=== PATIENT | male | born 1940 | race Caucasian/White ===

== ENCOUNTER 2019-09-05 18:58 | Inpatient (IN) | payer MEDICARE, OTHER ==
[2019-09-06 04:02] VITALS: BP 124/47
[2019-09-06] MEDS ORDERED: Magnesium Hydroxide (MOM) 30 mL UDC PO PRN (04:09)
[2019-09-06] MEDS ORDERED: Maalox 30 mL Cup PO PRN (04:09)
[2019-09-06] MEDS: Multivitamin Tab PO SCH (09:12)
[2019-09-06] MEDS ORDERED: Albuterol Nebulizer 2.5mg/3mL HHN PRN (13:18)
[2019-09-06] MEDS ORDERED: Fleet Enema 135 mL RC PRN (13:18)
[2019-09-06] MEDS ORDERED: Hydrocodone/APAP 5mg/325mg Tab PO PRN (13:18)
[2019-09-06] MEDS ORDERED: Polyvinyl Alcohol Ophth Soln 15 mL Bottle EACH EYE PRN (13:18)
[2019-09-06] MEDS ORDERED: Betamethasone/Clotrimazole Cream 15 gm Tube TP PRN (13:18)
[2019-09-06] MEDS ORDERED: POLYETHYLENE GLYCOL 3350 17 GM PACK PO PRN (13:18)
[2019-09-06] MEDS ORDERED: GLUCAGON HCl 1 MG KIT IM PRN (13:25)
[2019-09-06] MEDS ORDERED: ROTIGOTINE 8 MG TD SCH (13:30)
--- NOTE | 2019-09-06 14:41 | History & Physical ---
ADMIT DATE: 09/06/2019 REASON FOR CONSULTATION: Medical evaluation and clearance. HISTORY OF PRESENT ILLNESS: This is an 79-year-old male with history of hypertension, Parkinson's dementia, anemia, renal insufficiency, hypothyroidism, paroxysmal atrial fibrillation, BPH and severe debilitation, admitted from nursing facility ____ presented to ER. The patient ____, family member at bedside. PAST MEDICAL HISTORY: As mentioned in history of present illness. PAST SURGICAL HISTORY: Unable to obtain from the patient. ALLERGIES: Per chart, no known drug allergies. MEDICATIONS: The patient is on Tylenol, albuterol, Atrovent, [place], lidocaine, aspirin, Lotrisone, Sinemet, Aricept, Proscar, Fleet enema, Flonase, probiotic, lactulose, Megace, ____, Protonix, Nuplazid, MiraLax, artificial tears, and Azelex. FAMILY HISTORY: Noncontributory. SOCIAL HISTORY: The patient is a skilled nursing resident, patient requiring 24-hour total care. REVIEW OF SYSTEMS: This is limited secondary to pain, comatose. We will try to obtain more detailed review of system from family members, sister is Eloisa Byrd is at the bedside at [phone]. There is a brother, Jacinto Guerra, . We will also try to get information from nursing staff at ____ detention facility in [place]. PHYSICAL EXAMINATION: VITAL SIGNS: Blood pressure 124/47, respirations 20, pulse 67, temperature 98.0. GENERAL: He is an elderly male, contracted. HEENT: Bilateral temporal wasting. LUNGS: Equal breath sounds, few rhonchi. HEART: Regular rate and rhythm with systolic ejection murmur. ABDOMEN: Soft, globular. EXTREMITIES: Positive excoriation contracture. NEUROLOGIC: Limited. The patient is very specific. Gait not seen. Cranial nerve 1, disorder and confused. Cranial nerve 2, disorder and confused. Cranial nerve 3, disorder and confused. Cranial nerve 4, disorder and confused. Cranial nerve 5, disorder and confused. Cranial nerve 6, disorder and confused. Cranial nerve 7, disorder and confused. Cranial nerve 8, disorder and confused. Cranial nerve 9, disorder and confused. Cranial nerve 10, disorder and confused. Cranial nerve 11, disorder and confused. Cranial nerve 12, disorder and confused. Motor and sensory Limited. Gait not seen. LABORATORY DATA: Pertinent lab findings; sodium 143, potassium 3.2, BUN 22, creatinine 0.5, blood sugar 81, cholesterol is 116. Alcohol less than 3. WBC 8, hemoglobin 11 and platelets 230. ASSESSMENT AND PLAN: Diabetes, hypertension, hypokalemia, renal insufficiency, anemia, Parkinson's dementia, paroxysmal atrial fibrillation, benign prostatic hyperplasia, dermatitis, gait imbalance. Continue the patient on ADA diet and insulin sliding scale. We will review the patient's medication. Continue patient's antihypertensive medication. We will replace patient's potassium. We will continue to follow closely. JOB# [id number]
[2019-09-06] MEDS: Potassium Chloride 10 mEq ER Tab PO SCH (16:30)
[2019-09-06] MEDS ORDERED: INSULIN LISPRO SLIDING SCALE 100 UNITS/ML UNIT SUBQ SCH (16:30)
[2019-09-06] MEDS ORDERED: Non-Formulary Item 1 EA (Mirabegron [Myrbetriq] 25 MG) PO SCH (21:00)
[2019-09-06] MEDS ORDERED: Non-Formulary Item 1 EA (Pimavanserin Tartrate [Nuplazid] 34 MG) PO SCH (21:00)
[2019-09-06] MEDS: Lactulose 10 Gm/15 mL 30mL UDC PO SCH (21:10)
--- NOTE | 2019-09-07 01:02 | Psychiatric Evaluation ---
DATE OF SERVICE: 09/06/2019 IDENTIFYING DATA: The patient is an 79-year-old male, resident of a custodial facility. Information obtained by directly interviewing the patient as well as reviewing the admission papers and they are reliable. JUSTIFICATION OF HOSPITALIZATION: The patient is admitted for his acute agitation. CHIEF COMPLAINT: "I don't know." HISTORY OF PRESENT ILLNESS: This is the first psychiatric hospitalization to [facility] for this patient who is reported to have multiple medical problems such as hypertension, Parkinson's disease, dementia and renal insufficiency, hypothyroidism, paroxysmal atrial fibrillation and BPH and the patient is also noted to have acute torticollis. The patient has been admitted for acute agitation. Chart is reviewed. The patient is interviewed and the patient is not able to provide much of information. Sleep and appetite prior to the hospitalization are reported to be poor. PAST PSYCHIATRIC HISTORY: Details are not known, but the patient is being treated by Dr. Price on an outpatient basis. In view of his Parkinson's disease, the patient has been placed on Nuplazid. The patient is also on Aricept. MEDICAL HISTORY: Physical examination is requested to be done by Dr. Grande. SUBSTANCE ABUSE HISTORY: None. PHYSICAL OR SEXUAL ABUSE HISTORY: None. LEGAL PROBLEMS: None at this time. STRENGTH AND ASSETS: The patient is motivated. LIABILITIES: Poor coping skills. MENTAL STATUS EXAMINATION: The patient is an 79-year-old, looking his stated age, sitting down in the wheelchair with a neck bent to the left side. The patient is not able to provide much of information. Coping skills at this time are noted to be very much impaired. Insight and judgment are also noted to be very much impaired. The patient is reported to have been screaming and yelling prior to being hospitalized. The patient is reported to have been having acute psychosis. The patient is placed on Nuplazid. Since we do not have the Nuplazid ____ we are going to be using the patient's medication or starting the patient on Seroquel and then follow him up. DIAGNOSTIC IMPRESSION: AXIS I: 1. Psychotic disorder, not otherwise specified. 2. Dementia and behavioral change, secondary trait. AXIS II: None. AXIS III: Diabetes mellitus, hypertension, hypothyroidism, atrial fibrillation, benign prostate hypertrophy. AFTERCARE PLAN: The patient is going to be discharged to self once the patient is stabilized. ESTIMATED LENGTH OF STAY: 3-5 days. DISCHARGE CRITERIA: When he no longer a threat to self or others and be able to cope up with the stress. JOB# [id number]
[2019-09-07] MEDS: Pantoprazole 40 mg EC Tab PO SCH (06:40)
[2019-09-07] MEDS: INSULIN LISPRO SLIDING SCALE 100 UNITS/ML UNIT SUBQ SCH (06:52)
[2019-09-07] MEDS ORDERED: [UNRECOGNIZED DRUG - MIXTURE] PO SCH (09:00)
[2019-09-07] MEDS: Lactobacillus Rhamnosus GG 15 Billion CFU CAP.SPRINK PO SCH (09:15)
[2019-09-07] MEDS: Potassium Chloride 10 mEq ER Tab PO SCH ×2 (09:15→16:56)
[2019-09-07] MEDS: Multivitamin Tab PO SCH (09:15)
[2019-09-07] MEDS: Lactulose 10 Gm/15 mL 30mL UDC PO SCH (09:16)
[2019-09-07] MEDS: Fluticasone Propionate Nasal 1 SPR SPR NS SCH (09:17)
[2019-09-07] MEDS: Lidocaine 5% Patch TD SCH (09:17)
--- NOTE | 2019-09-07 09:54 | Consultation ---
DATE OF CONSULTATION: 09/07/2019 REFERRING PHYSICIAN: Geovany Price MD and Zach Menezes M.D. TYPE OF CONSULTATION: Psychology. HISTORY OF PRESENT ILLNESS: The patient is an 79-year-old male. The patient is being admitted due to acute agitation. The patient is a resident of a care home facility in [place]. The staff at the patient's facility report that the patient was having difficulty following through with his care plan and had multiple yelling and screaming episodes. Upon interview, the patient seems to be easily irritated and agitated and is not providing much information. The patient denied any suicidal ideation, plan or intention at the time of this clinical interview. PAST MEDICAL HISTORY: Please see history and physical by Dr. Grande. PAST PSYCHIATRIC HISTORY: The patient is under the care of Dr. Price at his placement. Details are unknown; however, record review indicates a history of dementia with behavioral disturbance. The patient has no other psychiatric hospitalizations according to the record. SUBSTANCE ABUSE HISTORY: The patient denies any history of alcohol, tobacco or illicit or recreational drug use/abuse. PSYCHOSOCIAL HISTORY: The patient lives at a care home facility. The patient stated that he is not and has no children. The patient states that he was raised Anglican. He stated that he is a high school graduate, but did not respond to the questions about previous occupation. The patient states that his brother, Jacinto and sister, Eloisa are involved in his care. The patient reports that he desires to return to his placement. The patient denied any physical or sexual abuse history or any current legal problems. MENTAL STATUS EXAMINATION: The patient appears to be his stated age. The patient's attitude is generally uncooperative. He presents as guarded and somewhat dismissive. The patient seems to be having a problem with his neck. He gave no other medical information at this time. Eye contact is poor. Speech is delayed and intermittently loud. Staff reports there has been some yelling episodes. Mood is irritable. Affect is constricted. Thought process shows to be confused and concrete. The patient did not answer questions about experiencing any auditory or visual hallucinations. The patient denied having suicidal thoughts. The patient's behavior has been difficult to deescalate. The staff reports some yelling episodes. Impulse control is inadequate. Concentration is poor. The patient was not able to perform the memory assessment. It appears that immediate, short term and long-term memory are impaired. Concentration is poor. The patient's sensorium is alert and oriented to self only. The patient did not participate in the interpretation of proverbs. Insight is poor. Judgment is poor. DIAGNOSTIC IMPRESSION AXIS I: 1. Psychotic disorder, not otherwise specified. 2. History of dementia with behavioral disturbance. AXIS II: Deferred. AXIS III: Please see H and P per Dr. Grande. PLAN: The patient has been seen by Dr. Menezes for psychiatric evaluation and for the management of the patient's psychotropic medications. The attending psychiatrist indicates the patient had been placed on Nuplazid, but that medication is not in the formulary. So the patient will be started on Seroquel. We will provide supportive psychotherapy to include de-escalation and motivational enhancement for the patient to become compliant and stay compliant with all aspects of his care and treatment. We will provide positive reinforcement for the patient to verbalize his concerns in an appropriate interaction with staff and to follow through with their direction. We will provide coping strategies for phase of life issues. We will provide reality orientation, differentiation and integration. We will encourage the patient to disclose any thoughts or feelings regarding self-harm. We will follow up in 2- 3 days to continue the present treatment. Thank you, Dr. Price and Dr. Menezes for this consult and the opportunity to participate with you in this patient's care. JOB# [id number] [place]
--- NOTE | 2019-09-07 10:01 | Internal Medicine Prog Note ---
Internal Medicine Subjective - Subjective Patient seen and examined:: with staff, chart reviewed Patient is:: awake, non-verbal, non-interactive, malachi chair Per staff patient has:: no adverse event, no episodes of fall, poor appetite, noncompliant Internal Medicine Objective - Physical Exam Vitals and I&O: Vital Signs Temp 97.3 F 09/07/19 06:41 Pulse 79 09/07/19 06:41 Resp 20 09/07/19 08:00 BP 138/80 09/07/19 06:41 Pulse Ox 99 09/07/19 06:41 Intake & Output 09/06/19 09/07/19 09/07/19 18:59 06:59 18:59 Intake Total 480 Output Total 252 Balance 228 Intake: Oral 480 Output: Urine 250 Urine/Stool Mix 2 Other: # Voids 1 Stool Characteristics Formed Formed Formed Active Medications: Current Medications Acetaminophen (Tylenol) 650 mg PO Q4H PRN PRN Reason: Pain (Mild 1-3) Stop: 11/05/19 04:08 Acetaminophen/Hydrocodone Bitart ([place] 5mg/325mg) 1 tab PO Q8H PRN PRN Reason: Pain (Severe 7-10) Stop: 11/05/19 13:29 Al Hydrox/Mg Hydrox/Simethicone (Maalox) 30 ml PO Q4HR PRN PRN Reason: GI DISTRESS Stop: 11/05/19 04:08 Albuterol Sulfate (Albuterol 2.5mg/3ml Neb Ud) 2.5 mg HHN Q4HR PRN PRN Reason: Shortness of Breath Stop: 11/05/19 15:59 Artificial Tears (Artificial Tears Ophth Soln) 1 drop EACH EYE TID PRN PRN Reason: dry eyes Stop: 11/05/19 13:17 Aspirin (Ecotrin) 81 mg PO DAILY MARIN Stop: 11/06/19 08:59 Last Admin: 09/07/19 09:15 Dose: 81 mg Betamethasone/Clotrimazole (Lotrisone Cream) 1 appl TP BID PRN PRN Reason: SEBORRHEIC DERMATITIS Stop: 11/05/19 13:17 Bisacodyl (Dulcolax 10 Mg Supp) 10 mg RC DAILY PRN PRN Reason: IF MIRALAX & MOM INEFFECTIVE Stop: 11/05/19 13:17 Carbidopa/Levodopa (Sinemet 25mg-100 Mg) 1 tab PO TID MARIN Stop: 11/05/19 13:59 Last Admin: 09/07/19 09:15 Dose: 1 tab Dextrose (Glutose 40%) 18.75 gm PO PRN PRN PRN Reason: BS Below 70 if tolerate po Stop: 11/05/19 13:24 Donepezil HCl (Aricept) 5 mg PO BID MARIN Stop: 11/05/19 16:59 Last Admin: 09/07/19 09:15 Dose: 5 mg Finasteride (Proscar) 5 mg PO DAILY MARIN; Protocol Stop: 11/06/19 08:59 Last Admin: 09/07/19 09:14 Dose: 5 mg Fluticasone Propionate (Flonase) 2 spr NS DAILY MARIN Stop: 11/06/19 08:59 Last Admin: 09/07/19 09:17 Dose: 2 spr Glucagon (Glucagen) 1 mg IM PRN PRN PRN Reason: BS Below 70 if not tolerate po Stop: 11/05/19 13:24 Insulin Human Lispro (Humalog Insulin Sliding Scale) 0 units SUBQ QDAC MARIN; Protocol Stop: 11/06/19 07:29 Last Admin: 09/07/19 06:52 Dose: Not Given Lactobacillus Rhamnosus (Culturelle 15b) 1 each PO DAILY MARIN Stop: 11/06/19 08:59 Last Admin: 09/07/19 09:15 Dose: 1 each Lactulose (Cephulac) 20 gm PO DAILY MARIN Stop: 11/07/19 08:59 Lidocaine (Lidoderm 5% Patch) 1 patch TD DAILY MARIN Stop: 11/06/19 08:59 Last Admin: 09/07/19 09:17 Dose: 1 patch Lorazepam (Ativan) 0.5 mg PO Q4HR PRN; Protocol PRN Reason: Anxiety Stop: 10/06/19 04:08 Last Admin: 09/07/19 06:00 Dose: 0.5 mg Magnesium Hydroxide (Milk Of Magnesia) 30 ml PO HS PRN PRN Reason: Constipation Megestrol Acetate (Megace) 400 mg PO QDAC MARIN; Protocol Stop: 11/06/19 07:29 Last Admin: 09/07/19 06:40 Dose: 400 mg Miscellaneous (Mirabegron [Myrbetriq]) 25 mg PO HS [facility] Stop: 11/05/19 20:59 Last Admin: 09/06/19 21:11 Dose: Not Given Miscellaneous (Pimavanserin Tartrate [Nuplazid]) 34 mg PO HS [facility] Stop: 11/05/19 20:59 Last Admin: 09/06/19 21:11 Dose: Not Given Miscellaneous (Rasagiline Mesylate [Azilect]) 1 mg PO DAILY [facility] Stop: 11/06/19 08:59 Miscellaneous (Rotigotine [Neupro]) 8 mg TD Q24H [facility] Stop: 11/05/19 13:29 Last Admin: 09/06/19 15:01 Dose: Not Given Multivitamins/Vitamin C (Theragran) 1 tab PO DAILY [facility] Stop: 11/05/19 08:59 Last Admin: 09/07/19 09:15 Dose: 1 tab Pantoprazole Sodium (Protonix) 40 mg PO QDAC [facility] Stop: 11/06/19 07:29 Last Admin: 09/07/19 06:40 Dose: 40 mg Polyethylene Glycol (Miralax) 17 gm PO QAM PRN PRN Reason: Constipation Stop: 11/05/19 13:17 Potassium Chloride (Klor-Con) 10 meq PO BID [facility] Stop: 09/08/19 16:59 Last Admin: 09/07/19 09:15 Dose: 10 meq Senna (Senna) 8.6 mg PO BID PRN PRN Reason: Constipation Stop: 11/05/19 16:59 Sodium Phosphate (Fleet Enema) 118 ml RC Q2D PRN PRN Reason: IF DULCOLAX INEFFECTIVE Stop: 11/05/19 13:17 Tamsulosin HCl (Flomax) 0.4 mg PO DAILY [facility] Stop: 11/06/19 08:59 Last Admin: 09/07/19 09:15 Dose: 0.4 mg Zolpidem Tartrate (Ambien) 5 mg PO HS PRN PRN Reason: Insomnia Stop: 11/05/19 04:08 General: lethargic, demented, thin, cachectic, other (contracted) HEENT: NC/AT, PERRLA Neck: Supple Lungs: CTAB Cardiovascular: RRR, Normal S1, Normal S2, with murmur Abdomen: soft, thin, positive bowel sound Extremities: excoriation, deformity, erythema Neurological: no change, spastic Internal Medicine Assmt/Plan - Assessment Assessment: ASSESSMENT AND PLAN: Diabetes, hypertension, hypokalemia, renal insufficiency, anemia, Parkinson's dementia, paroxysmal atrial fibrillation, benign prostatic hyperplasia, dermatitis, gait imbalance. - Plan Plan: PLAN: Continue the patient on ADA diet and insulin sliding scale. We will review the patient's medication. Continue patient's antihypertensive medication. We will replace patient's potassium. We will continue to follow closely. meds titrated Nutritional Asmnt/Malnutr-PDOC - Dietary Evaluation Malnutrition Findings (Please click <Entered> for more info): Nutritional Asmnt/Malnutrition Start: 09/06/19 14: 29 Text: Status: Complete Freq: Protocol: Document 09/06/19 14:29 UVALDO (Rec: 09/06/19 14:33 UVALDO [id number]) Nutritional Asmnt/Malnutrition Patient General Information Nutritional Screening High Risk Diagnosis Psychosis Pertinent Medical Hx/Surgical Hx No H& P available yet. Subjective Information Pt downgraded to moderate risk as he is eating and Ensure TID has been added to diet to increase nutritional intake to support skin integrity. Pt is a 79-year-old male admitted on 09/06 d/t psychosis. Visited pt at lunch time and spoke with family at side. Pt was eating lunch, was able to feed himself, pt seemed to need his food chopped as he was unable to use both hands at same time and is only able to use a spoon. Recorded pt food preferences and adding Ensure TID to increase kcal and pro intake as pt does loose food in his lap and enjoys the taste of the chocolate Ensure drinks. Pt stated its easy for him to drink with a straw than to eat everything. Pt was doing well eating though, will thicken hot cereals in the morning to help pt get the food to his mouth per request. Will monitor pt Zeyad Score and PO intake. Spoke with pt Nurse Tenisha pertaining to recommendation: Diet Rx Mechanical Soft, Chopped Anthropometrics HT: 56 WT: 126 LB (57.27 kg) BMI: 20.40 (Normal) GI/ Skin Integrity GI: WNL, Soft, Flat BM: 09/06 x1 I/O: 60/Not Noted Skin: WNL, Intact Zeyad: 12 Diet Order: Regular Estimated Energy Needs: ( Geriatric, CBW) 6698-9741 kcals (25-30 kcals/ kg) 60-70g Pro (1.0-1.2 g/kg) 6411-5446 ml (25-30 ml/kg) Pertinent Medications Maalox (PRN), Albuterol (PRN), Dulcolax, Glutose 40% (PRN), Flonase, Glucagen (PRN), INS- SS, Cephulac, MOM (PRN), Megace, Theragran, Protonix, Miralax (PRN), Klor-Con, Senna , Flomax Pertinent Labs Pertinent Labs No nutrition diagnosis at this time. Glucose WNL. Nutritional Hx/Data Height 1.68 m Height (Calculated Centimeters) 167.6 Current Weight (lbs) 57.153 kg Weight (Calculated Kilograms) 57.2 Weight (Calculated Grams) 45591.6 [place] Body Weight 142 LB (64.55 kg) % [place] Body Weight 89 Body Mass Index (BMI) 20.3 Weight Status Approriate GI Symptoms GI Symptoms None Last BM 09/06 x1 Skin Integrity/Comment: Zeyad: 12 Pt downgraded to moderate risk as he is eating and Ensure TID has been added to diet to increase nutritional intake to support skin integrity. Will monitor pt Zeyad Score and PO intake. Estimated Nutritional Goals BEE in Kcals: Using Current wt Calories/Kcals/Kg 25-30 Kcals Calculated 0836-9542 Protein: Using Current wt Protein g/k.0-1.2 Protein Calculated 60-70 Fluid: ml 2075-3722 ml (25-30 ml/kg) Nutritional Problem No current Nutrition Prob Problem No nutrition diagnosis at this time. Etiology N/A Signs/Symptoms: N/A Malnutrition Related to Morbid Obesity Malnutrition related to morbid obesity No Intervention/Recommendation Comments 1.Recommend Diet Rx: Mechanical Soft, Chopped d/t pt physical eating abilities. 2.Add Ensure TID per pt request (completed). Expected Outcomes/Goals Expected Outcomes/Goals 1.PO intake to meet 75% of estimated nutritional needs. 2.Monitor PO intake, wt, nutrition related labs, and skin integrity. 3.F/U as moderate risk in 7-10 days, 09/09-09/11.
--- NOTE | 2019-09-07 15:02 | Progress Notes ---
DATE: 09/07/2019 SUBJECTIVE: Staff was spoken to. The patient is interviewed. Mood is noted to be dysphoric. Coping skills are noted to be very poor. The patient has paranoia. Insight and judgment are noted to be still impaired. Impulse control is noted to be limited. The patient has been having difficult time to cope with the stress. The patient continues to be getting easily frustrated. No side effects to the medications are noted. ASSESSMENT: The patient is still psychotic. PLAN: To continue the patient with the current medications and follow up with the supportive therapy. The patient is going to be started on low dose of Seroquel today. JOB# [id number]
[2019-09-08] MEDS: Pantoprazole 40 mg EC Tab PO SCH (06:47)
[2019-09-08] MEDS: INSULIN LISPRO SLIDING SCALE 100 UNITS/ML UNIT SUBQ SCH (06:48)
[2019-09-08] MEDS: Lactulose 10 Gm/15 mL 30mL UDC PO SCH (09:05)
[2019-09-08] MEDS: Lidocaine 5% Patch TD SCH (09:05)
[2019-09-08] MEDS: Fluticasone Propionate Nasal 1 SPR SPR NS SCH (09:05)
[2019-09-08] MEDS: Multivitamin Tab PO SCH (09:06)
[2019-09-08] MEDS: Potassium Chloride 10 mEq ER Tab PO SCH (09:06)
[2019-09-08] MEDS: Lactobacillus Rhamnosus GG 15 Billion CFU CAP.SPRINK PO SCH (09:06)
--- NOTE | 2019-09-08 10:51 | Progress Notes ---
DATE: 09/08/2019 PSYCHIATRIC PROGRESS NOTE SUBJECTIVE: Staff was spoken to. The patient is interviewed. Mood is noted to be depressed. Affect is constricted. The patient is still isolative and withdrawn and has been restricting himself with a wheelchair. The patient is still paranoid. The patient is reported to have gotten a little bit agitated last night, but this morning, he seems to be okay. ASSESSMENT: The patient is still paranoid. PLAN: To continue the patient with the current medications. The patient with supportive therapy. I encouraged the patient to verbalize the concerns rather than to act out. [facility]# [id number]
--- NOTE | 2019-09-08 19:21 | Internal Medicine Prog Note ---
Internal Medicine Subjective - Subjective Patient seen and examined:: with staff, chart reviewed Patient is:: awake, non-verbal, non-interactive, malachi chair Per staff patient has:: no adverse event, no episodes of fall, poor appetite, noncompliant Internal Medicine Objective - Physical Exam Vitals and I&O: Vital Signs Temp 97.5 F 09/08/19 14:02 Pulse 76 09/08/19 14:02 Resp 18 09/08/19 14:02 BP 119/76 09/08/19 14:02 Pulse Ox 97 09/08/19 14:02 Intake & Output 09/08/19 09/08/19 09/09/19 06:59 18:59 06:59 Intake Total 240 Balance 240 Intake: Oral 240 Other: # Voids 1 4 # Bowel Movements 1 Stool Characteristics Formed Formed Active Medications: Current Medications Acetaminophen (Tylenol) 650 mg PO Q4H PRN PRN Reason: Pain (Mild 1-3) Stop: 11/05/19 04:08 Acetaminophen/Hydrocodone Bitart ([place] 5mg/325mg) 1 tab PO Q8H PRN PRN Reason: Pain (Severe 7-10) Stop: 11/05/19 13:29 Al Hydrox/Mg Hydrox/Simethicone (Maalox) 30 ml PO Q4HR PRN PRN Reason: GI DISTRESS Stop: 11/05/19 04:08 Albuterol Sulfate (Albuterol 2.5mg/3ml Neb Ud) 2.5 mg HHN Q4HR PRN PRN Reason: Shortness of Breath Stop: 11/05/19 15:59 Artificial Tears (Artificial Tears Ophth Soln) 1 drop EACH EYE TID PRN PRN Reason: dry eyes Stop: 11/05/19 13:17 Aspirin (Ecotrin) 81 mg PO DAILY [facility] Stop: 11/06/19 08:59 Last Admin: 09/08/19 09:06 Dose: 81 mg Betamethasone/Clotrimazole (Lotrisone Cream) 1 appl TP BID PRN PRN Reason: SEBORRHEIC DERMATITIS Stop: 11/05/19 13:17 Bisacodyl (Dulcolax 10 Mg Supp) 10 mg RC DAILY PRN PRN Reason: IF MIRALAX & MOM INEFFECTIVE Stop: 11/05/19 13:17 Carbidopa/Levodopa (Sinemet 25mg-100 Mg) 1 tab PO TID [facility] Stop: 11/05/19 13:59 Last Admin: 09/08/19 13:05 Dose: 1 tab Dextrose (Glutose 40%) 18.75 gm PO PRN PRN PRN Reason: BS Below 70 if tolerate po Stop: 11/05/19 13:24 Donepezil HCl (Aricept) 5 mg PO BID [facility] Stop: 11/05/19 16:59 Last Admin: 09/08/19 16:24 Dose: 5 mg Finasteride (Proscar) 5 mg PO DAILY [facility]; Protocol Stop: 11/06/19 08:59 Last Admin: 09/08/19 09:06 Dose: 5 mg Fluticasone Propionate (Flonase) 2 spr NS DAILY [facility] Stop: 11/06/19 08:59 Last Admin: 09/08/19 09:05 Dose: 2 spr Glucagon (Glucagen) 1 mg IM PRN PRN PRN Reason: BS Below 70 if not tolerate po Stop: 11/05/19 13:24 Insulin Human Lispro (Humalog Insulin Sliding Scale) 0 units SUBQ QDAC [facility]; Protocol Stop: 11/06/19 07:29 Last Admin: 09/08/19 06:48 Dose: Not Given Lactobacillus Rhamnosus (Culturelle 15b) 1 each PO DAILY [facility] Stop: 11/06/19 08:59 Last Admin: 09/08/19 09:06 Dose: 1 each Lactulose (Cephulac) 20 gm PO DAILY [facility] Stop: 11/07/19 08:59 Last Admin: 09/08/19 09:05 Dose: 20 gm Lidocaine (Lidoderm 5% Patch) 1 patch TD DAILY [facility] Stop: 11/06/19 08:59 Last Admin: 09/08/19 09:05 Dose: 1 patch Lorazepam (Ativan) 0.5 mg PO Q4HR PRN; Protocol PRN Reason: Anxiety Stop: 10/06/19 04:08 Last Admin: 09/07/19 06:00 Dose: 0.5 mg Magnesium Hydroxide (Milk Of Magnesia) 30 ml PO HS PRN PRN Reason: Constipation Megestrol Acetate (Megace) 400 mg PO QDAC [facility]; Protocol Stop: 11/06/19 07:29 Last Admin: 09/08/19 06:47 Dose: 400 mg Miscellaneous (Mirabegron [Myrbetriq]) 25 mg PO HS [facility] Stop: 11/05/19 20:59 Last Admin: 09/06/19 21:11 Dose: Not Given Miscellaneous (Pimavanserin Tartrate [Nuplazid]) 34 mg PO HS [facility] Stop: 11/05/19 20:59 Last Admin: 09/06/19 21:11 Dose: Not Given Miscellaneous (Rasagiline Mesylate [Azilect]) 1 mg PO DAILY [facility] Stop: 11/06/19 08:59 Miscellaneous (Rotigotine [Neupro]) 8 mg TD Q24H [facility] Stop: 11/05/19 13:29 Last Admin: 09/06/19 15:01 Dose: Not Given Multivitamins/Vitamin C (Theragran) 1 tab PO DAILY [facility] Stop: 11/05/19 08:59 Last Admin: 09/08/19 09:06 Dose: 1 tab Pantoprazole Sodium (Protonix) 40 mg PO QDAC [facility] Stop: 11/06/19 07:29 Last Admin: 09/08/19 06:47 Dose: 40 mg Polyethylene Glycol (Miralax) 17 gm PO QAM PRN PRN Reason: Constipation Stop: 11/05/19 13:17 Quetiapine Fumarate (Seroquel) 12.5 mg PO HS [facility]; Protocol Stop: 11/06/19 20:59 Last Admin: 09/07/19 20:41 Dose: 12.5 mg Senna (Senna) 8.6 mg PO BID PRN PRN Reason: Constipation Stop: 11/05/19 16:59 Sodium Phosphate (Fleet Enema) 118 ml RC Q2D PRN PRN Reason: IF DULCOLAX INEFFECTIVE Stop: 11/05/19 13:17 Tamsulosin HCl (Flomax) 0.4 mg PO DAILY [facility] Stop: 11/06/19 08:59 Last Admin: 09/08/19 09:06 Dose: 0.4 mg Zolpidem Tartrate (Ambien) 5 mg PO HS PRN PRN Reason: Insomnia Stop: 11/05/19 04:08 Last Admin: 09/07/19 23:43 Dose: 5 mg General: lethargic, demented, thin, cachectic, other (contracted) HEENT: NC/AT, PERRLA Neck: Supple Lungs: CTAB Cardiovascular: RRR, Normal S1, Normal S2, with murmur Abdomen: soft, thin, positive bowel sound Extremities: excoriation, deformity, erythema Neurological: no change, spastic Internal Medicine Assmt/Plan - Assessment Assessment: ASSESSMENT AND PLAN: Diabetes, hypertension, hypokalemia, renal insufficiency, anemia, Parkinson's dementia, paroxysmal atrial fibrillation, benign prostatic hyperplasia, dermatitis, gait imbalance. - Plan Plan: PLAN: Continue the patient on ADA diet and insulin sliding scale. We will review the patient's medication. Continue patient's antihypertensive medication. We will replace patient's potassium. We will continue to follow closely. meds titrated Nutritional Asmnt/Malnutr-PDOC - Dietary Evaluation Malnutrition Findings (Please click <Entered> for more info): Nutritional Asmnt/Malnutrition Start: 09/06/19 14: 29 Text: Status: Complete Freq: Protocol: Document 09/06/19 14:29 UVALDO (Rec: 09/06/19 14:33 UVALDO [id number]) Nutritional Asmnt/Malnutrition Patient General Information Nutritional Screening High Risk Diagnosis Psychosis Pertinent Medical Hx/Surgical Hx No H& P available yet. Subjective Information Pt downgraded to moderate risk as he is eating and Ensure TID has been added to diet to increase nutritional intake to support skin integrity. Pt is a 79-year-old male admitted on 09/06 d/t psychosis. Visited pt at lunch time and spoke with family at side. Pt was eating lunch, was able to feed himself, pt seemed to need his food chopped as he was unable to use both hands at same time and is only able to use a spoon. Recorded pt food preferences and adding Ensure TID to increase kcal and pro intake as pt does loose food in his lap and enjoys the taste of the chocolate Ensure drinks. Pt stated its easy for him to drink with a straw than to eat everything. Pt was doing well eating though, will thicken hot cereals in the morning to help pt get the food to his mouth per request. Will monitor pt Zeyad Score and PO intake. Spoke with pt Nurse Tenisha pertaining to recommendation: Diet Rx Mechanical Soft, Chopped Anthropometrics HT: 56 WT: 126 LB (57.27 kg) BMI: 20.40 (Normal) GI/ Skin Integrity GI: WNL, Soft, Flat BM: 09/06 x1 I/O: 60/Not Noted Skin: WNL, Intact Zeyad: 12 Diet Order: Regular Estimated Energy Needs: ( Geriatric, CBW) 7402-8245 kcals (25-30 kcals/ kg) 60-70g Pro (1.0-1.2 g/kg) 8535-9994 ml (25-30 ml/kg) Pertinent Medications Maalox (PRN), Albuterol (PRN), Dulcolax, Glutose 40% (PRN), Flonase, Glucagen (PRN), INS- SS, Cephulac, MOM (PRN), Megace, Theragran, Protonix, Miralax (PRN), Klor-Con, Senna , Flomax Pertinent Labs Pertinent Labs No nutrition diagnosis at this time. Glucose WNL. Nutritional Hx/Data Height 1.68 m Height (Calculated Centimeters) 167.6 Current Weight (lbs) 57.153 kg Weight (Calculated Kilograms) 57.2 Weight (Calculated Grams) 29979.6 [place] Body Weight 142 LB (64.55 kg) % [place] Body Weight 89 Body Mass Index (BMI) 20.3 Weight Status Approriate GI Symptoms GI Symptoms None Last BM 09/06 x1 Skin Integrity/Comment: Zeyad: 12 Pt downgraded to moderate risk as he is eating and Ensure TID has been added to diet to increase nutritional intake to support skin integrity. Will monitor pt Zeyad Score and PO intake. Estimated Nutritional Goals BEE in Kcals: Using Current wt Calories/Kcals/Kg 25-30 Kcals Calculated 5048-1362 Protein: Using Current wt Protein g/k.0-1.2 Protein Calculated 60-70 Fluid: ml 3615-0085 ml (25-30 ml/kg) Nutritional Problem No current Nutrition Prob Problem No nutrition diagnosis at this time. Etiology N/A Signs/Symptoms: N/A Malnutrition Related to Morbid Obesity Malnutrition related to morbid obesity No Intervention/Recommendation Comments 1.Recommend Diet Rx: Mechanical Soft, Chopped d/t pt physical eating abilities. 2.Add Ensure TID per pt request (completed). Expected Outcomes/Goals Expected Outcomes/Goals 1.PO intake to meet 75% of estimated nutritional needs. 2.Monitor PO intake, wt, nutrition related labs, and skin integrity. 3.F/U as moderate risk in 7-10 days, 09/09-09/11.
[2019-09-09] MEDS: INSULIN LISPRO SLIDING SCALE 100 UNITS/ML UNIT SUBQ SCH (06:43)
[2019-09-09] MEDS: Pantoprazole 40 mg EC Tab PO SCH (06:44)
[2019-09-09] MEDS: Fluticasone Propionate Nasal 1 SPR SPR NS SCH (08:46)
[2019-09-09] MEDS: Lidocaine 5% Patch TD SCH (08:46)
[2019-09-09] MEDS: Lactobacillus Rhamnosus GG 15 Billion CFU CAP.SPRINK PO SCH (08:49)
[2019-09-09] MEDS: Multivitamin Tab PO SCH (08:49)
[2019-09-09] MEDS: Lactulose 10 Gm/15 mL 30mL UDC PO SCH (08:49)
[2019-09-09] MEDS ORDERED: Fleet Enema 135 mL RC PRN (10:15)
--- NOTE | 2019-09-09 13:00 | Internal Medicine Prog Note ---
Internal Medicine Subjective - Subjective Patient seen and examined:: with staff, chart reviewed Patient is:: awake, non-verbal, non-interactive, malachi chair Per staff patient has:: no adverse event, no episodes of fall, poor appetite, noncompliant Internal Medicine Objective - Physical Exam Vitals and I&O: Vital Signs Temp 98.3 F 09/08/19 19:59 Pulse 98 09/08/19 19:59 Resp 18 09/09/19 08:00 BP 104/54 09/08/19 19:59 Pulse Ox 97 09/08/19 19:59 Intake & Output 09/08/19 09/09/19 09/09/19 18:59 06:59 18:59 Intake Total 520 Balance 520 Intake: Oral 520 Other: # Voids 4 2 # Bowel Movements 1 Stool Characteristics Formed Formed Active Medications: Current Medications Acetaminophen (Tylenol) 650 mg PO Q4H PRN PRN Reason: Pain (Mild 1-3) Stop: 11/05/19 04:08 Acetaminophen/Hydrocodone Bitart ([place] 5mg/325mg) 1 tab PO Q8H PRN PRN Reason: Pain (Severe 7-10) Stop: 11/05/19 13:29 Al Hydrox/Mg Hydrox/Simethicone (Maalox) 30 ml PO Q4HR PRN PRN Reason: GI DISTRESS Stop: 11/05/19 04:08 Albuterol Sulfate (Albuterol 2.5mg/3ml Neb Ud) 2.5 mg HHN Q4HR PRN PRN Reason: Shortness of Breath Stop: 11/05/19 15:59 Artificial Tears (Artificial Tears Ophth Soln) 1 drop EACH EYE TID PRN PRN Reason: dry eyes Stop: 11/05/19 13:17 Aspirin (Ecotrin) 81 mg PO DAILY [facility] Stop: 11/06/19 08:59 Last Admin: 09/09/19 08:49 Dose: 81 mg Betamethasone/Clotrimazole (Lotrisone Cream) 1 appl TP BID PRN PRN Reason: SEBORRHEIC DERMATITIS Stop: 11/05/19 13:17 Bisacodyl (Dulcolax 10 Mg Supp) 10 mg RC DAILY PRN PRN Reason: IF MIRALAX & MOM INEFFECTIVE Stop: 11/05/19 13:17 Carbidopa/Levodopa (Sinemet 25mg-100 Mg) 1 tab PO TID [facility] Stop: 11/05/19 13:59 Last Admin: 09/09/19 08:49 Dose: 1 tab Dextrose (Glutose 40%) 18.75 gm PO PRN PRN PRN Reason: BS Below 70 if tolerate po Stop: 11/05/19 13:24 Donepezil HCl (Aricept) 5 mg PO BID [facility] Stop: 11/05/19 16:59 Last Admin: 09/09/19 08:49 Dose: 5 mg Finasteride (Proscar) 5 mg PO DAILY [facility]; Protocol Stop: 11/06/19 08:59 Last Admin: 09/09/19 08:49 Dose: 5 mg Fluticasone Propionate (Flonase) 2 spr NS DAILY [facility] Stop: 11/06/19 08:59 Last Admin: 09/09/19 08:46 Dose: 2 spr Glucagon (Glucagen) 1 mg IM PRN PRN PRN Reason: BS Below 70 if not tolerate po Stop: 11/05/19 13:24 Insulin Human Lispro (Humalog Insulin Sliding Scale) 0 units SUBQ QDAC [facility]; Protocol Stop: 11/06/19 07:29 Last Admin: 09/09/19 06:43 Dose: Not Given Lactobacillus Rhamnosus (Culturelle 15b) 1 each PO DAILY [facility] Stop: 11/06/19 08:59 Last Admin: 09/09/19 08:49 Dose: 1 each Lactulose (Cephulac) 20 gm PO DAILY [facility] Stop: 11/07/19 08:59 Last Admin: 09/09/19 08:49 Dose: 20 gm Lidocaine (Lidoderm 5% Patch) 1 patch TD DAILY [facility] Stop: 11/06/19 08:59 Last Admin: 09/09/19 08:46 Dose: 1 patch Lorazepam (Ativan) 0.5 mg PO Q4HR PRN; Protocol PRN Reason: Anxiety Stop: 10/06/19 04:08 Last Admin: 09/07/19 06:00 Dose: 0.5 mg Magnesium Hydroxide (Milk Of Magnesia) 30 ml PO HS PRN PRN Reason: Constipation Megestrol Acetate (Megace) 400 mg PO QDAC [facility]; Protocol Stop: 11/06/19 07:29 Last Admin: 09/09/19 06:44 Dose: 400 mg Miscellaneous (Mirabegron [Myrbetriq]) 25 mg PO HS [facility] Stop: 11/05/19 20:59 Last Admin: 09/06/19 21:11 Dose: Not Given Miscellaneous (Pimavanserin Tartrate [Nuplazid]) 34 mg PO HS [facility] Stop: 11/05/19 20:59 Last Admin: 09/06/19 21:11 Dose: Not Given Miscellaneous (Rasagiline Mesylate [Azilect]) 1 mg PO DAILY [facility] Stop: 11/06/19 08:59 Miscellaneous (Rotigotine [Neupro]) 8 mg TD Q24H [facility] Stop: 11/05/19 13:29 Last Admin: 09/06/19 15:01 Dose: Not Given Multivitamins/Vitamin C (Theragran) 1 tab PO DAILY [facility] Stop: 11/05/19 08:59 Last Admin: 09/09/19 08:49 Dose: 1 tab Pantoprazole Sodium (Protonix) 40 mg PO QDAC [facility] Stop: 11/06/19 07:29 Last Admin: 09/09/19 06:44 Dose: 40 mg Polyethylene Glycol (Miralax) 17 gm PO QAM PRN PRN Reason: Constipation Stop: 11/05/19 13:17 Quetiapine Fumarate (Seroquel) 12.5 mg PO [facility]; Protocol Stop: 11/06/19 20:59 Last Admin: 09/08/19 20:50 Dose: 12.5 mg Senna (Senna) 8.6 mg PO BID PRN PRN Reason: Constipation Stop: 11/05/19 16:59 Sodium Phosphate (Fleet Enema) 118 ml RC DAILY PRN PRN Reason: IF DULCOLAX INEFFECTIVE Stop: 11/05/19 13:17 Tamsulosin HCl (Flomax) 0.4 mg PO DAILY [facility] Stop: 11/06/19 08:59 Last Admin: 09/09/19 08:49 Dose: 0.4 mg Zolpidem Tartrate (Ambien) 5 mg PO HS PRN PRN Reason: Insomnia Stop: 11/05/19 04:08 Last Admin: 09/08/19 20:53 Dose: 5 mg General: lethargic, demented, thin, cachectic, other (contracted) HEENT: NC/AT, PERRLA Neck: Supple Lungs: CTAB Cardiovascular: RRR, Normal S1, Normal S2, with murmur Abdomen: soft, thin, positive bowel sound Extremities: excoriation, deformity, erythema Neurological: no change, spastic Internal Medicine Assmt/Plan - Assessment Assessment: ASSESSMENT AND PLAN: Diabetes, hypertension, hypokalemia, renal insufficiency, anemia, Parkinson's dementia, paroxysmal atrial fibrillation, benign prostatic hyperplasia, dermatitis, gait imbalance. - Plan Plan: PLAN: Continue the patient on ADA diet and insulin sliding scale. We will review the patient's medication. Continue patient's antihypertensive medication. We will replace patient's potassium. We will continue to follow closely. meds titrated awaiting meds--family to provide per staff Nutritional Asmnt/Malnutr-PDOC - Dietary Evaluation Malnutrition Findings (Please click <Entered> for more info): Nutritional Asmnt/Malnutrition Start: 09/06/19 14: 29 Text: Status: Complete Freq: Protocol: Document 09/06/19 14:29 UVALDO (Rec: 09/06/19 14:33 UVALDO [id number]) Nutritional Asmnt/Malnutrition Patient General Information Nutritional Screening High Risk Diagnosis Psychosis Pertinent Medical Hx/Surgical Hx No H& P available yet. Subjective Information Pt downgraded to moderate risk as he is eating and Ensure TID has been added to diet to increase nutritional intake to support skin integrity. Pt is a 79-year-old male admitted on 09/06 d/t psychosis. Visited pt at lunch time and spoke with family at side. Pt was eating lunch, was able to feed himself, pt seemed to need his food chopped as he was unable to use both hands at same time and is only able to use a spoon. Recorded pt food preferences and adding Ensure TID to increase kcal and pro intake as pt does loose food in his lap and enjoys the taste of the chocolate Ensure drinks. Pt stated its easy for him to drink with a straw than to eat everything. Pt was doing well eating though, will thicken hot cereals in the morning to help pt get the food to his mouth per request. Will monitor pt Zeyad Score and PO intake. Spoke with pt Nurse Tenisha pertaining to recommendation: Diet Rx Mechanical Soft, Chopped Anthropometrics HT: 56 WT: 126 LB (57.27 kg) BMI: 20.40 (Normal) GI/ Skin Integrity GI: WNL, Soft, Flat BM: 2/7 x1 I/O: 60/Not Noted Skin: WNL, Intact Zeyad: 12 Diet Order: Regular Estimated Energy Needs: ( Geriatric, CBW) 6086-5011 kcals (25-30 kcals/ kg) 60-70g Pro (1.0-1.2 g/kg) 2999-4981 ml (25-30 ml/kg) Pertinent Medications Maalox (PRN), Albuterol (PRN), Dulcolax, Glutose 40% (PRN), Flonase, Glucagen (PRN), INS- SS, Cephulac, MOM (PRN), Megace, Theragran, Protonix, Miralax (PRN), Klor-Con, Senna , Flomax Pertinent Labs Pertinent Labs No nutrition diagnosis at this time. Glucose WNL. Nutritional Hx/Data Height 1.68 m Height (Calculated Centimeters) 167.6 Current Weight (lbs) 57.153 kg Weight (Calculated Kilograms) 57.2 Weight (Calculated Grams) 36783.6 [place] Body Weight 142 LB (64.55 kg) % [place] Body Weight 89 Body Mass Index (BMI) 20.3 Weight Status Approriate GI Symptoms GI Symptoms None Last BM 09/06 x1 Skin Integrity/Comment: Zeyad: 12 Pt downgraded to moderate risk as he is eating and Ensure TID has been added to diet to increase nutritional intake to support skin integrity. Will monitor pt Zeyad Score and PO intake. Estimated Nutritional Goals BEE in Kcals: Using Current wt Calories/Kcals/Kg 25-30 Kcals Calculated 9429-2953 Protein: Using Current wt Protein g/k.0-1.2 Protein Calculated 60-70 Fluid: ml 4966-8124 ml (25-30 ml/kg) Nutritional Problem No current Nutrition Prob Problem No nutrition diagnosis at this time. Etiology N/A Signs/Symptoms: N/A Malnutrition Related to Morbid Obesity Malnutrition related to morbid obesity No Intervention/Recommendation Comments 1.Recommend Diet Rx: Mechanical Soft, Chopped d/t pt physical eating abilities. 2.Add Ensure TID per pt request (completed). Expected Outcomes/Goals Expected Outcomes/Goals 1.PO intake to meet 75% of estimated nutritional needs. 2.Monitor PO intake, wt, nutrition related labs, and skin integrity. 3.F/U as moderate risk in 7-10 days, 09/09-09/11.
--- NOTE | 2019-09-10 00:12 | Progress Notes ---
DATE: 09/09/2019 PSYCHIATRIC PROGRESS NOTE SUBJECTIVE: Staff was spoken to. The patient is interviewed. Mood is noted to be irritable. Affect is constricted. The patient is reported to have been screaming and yelling. The patient is reported to have been isolative and withdrawn most of the time and the patient has been having problems with paranoia. The patient is a total care patient. ASSESSMENT: The patient is still psychotic. PLAN: To continue the patient with the supportive therapy. Plan to get the patient's Nuplazid and ____. Otherwise, he is going to be started on the Seroquel. JOB# [id number]
[2019-09-10] MEDS: INSULIN LISPRO SLIDING SCALE 100 UNITS/ML UNIT SUBQ SCH (06:30)
[2019-09-10] MEDS: Pantoprazole 40 mg EC Tab PO SCH (06:31)
[2019-09-10] MEDS: Fluticasone Propionate Nasal 1 SPR SPR NS SCH (09:17)
[2019-09-10] MEDS: Lactulose 10 Gm/15 mL 30mL UDC PO SCH (09:17)
[2019-09-10] MEDS: Multivitamin Tab PO SCH (09:17)
[2019-09-10] MEDS: Lidocaine 5% Patch TD SCH (09:17)
[2019-09-10] MEDS: Lactobacillus Rhamnosus GG 15 Billion CFU CAP.SPRINK PO SCH (09:18)
--- NOTE | 2019-09-10 13:08 | Internal Medicine Prog Note ---
Internal Medicine Subjective - Subjective Patient seen and examined:: with staff, chart reviewed Patient is:: awake, non-verbal, non-interactive, malachi chair Per staff patient has:: no adverse event, no episodes of fall, poor appetite, noncompliant Internal Medicine Objective - Results Recent Labs: Laboratory Last Values POC Glucose 91 MG/DL (70 - 105) 09/10/19 06:06 - Physical Exam Vitals and I&O: Vital Signs Temp 99.1 F 09/10/19 06:04 Pulse 97 09/10/19 06:04 Resp 18 09/10/19 07:52 BP 120/75 09/10/19 06:04 Pulse Ox 96 09/10/19 06:04 Intake & Output 09/09/19 09/10/19 09/10/19 18:59 06:59 18:59 Intake Total 960 300 Balance 960 300 Intake: Oral 960 300 Other: # Voids 3 3 # Bowel Movements 0 0 Stool Characteristics Formed Active Medications: Current Medications Acetaminophen (Tylenol) 650 mg PO Q4H PRN PRN Reason: Pain (Mild 1-3) Stop: 11/05/19 04:08 Acetaminophen/Hydrocodone Bitart ([place] 5mg/325mg) 1 tab PO Q8H PRN PRN Reason: Pain (Severe 7-10) Stop: 11/05/19 13:29 Al Hydrox/Mg Hydrox/Simethicone (Maalox) 30 ml PO Q4HR PRN PRN Reason: GI DISTRESS Stop: 11/05/19 04:08 Albuterol Sulfate (Albuterol 2.5mg/3ml Neb Ud) 2.5 mg HHN Q4HR PRN PRN Reason: Shortness of Breath Stop: 11/05/19 15:59 Artificial Tears (Artificial Tears Ophth Soln) 1 drop EACH EYE TID PRN PRN Reason: dry eyes Stop: 11/05/19 13:17 Aspirin (Ecotrin) 81 mg PO DAILY [facility] Stop: 11/06/19 08:59 Last Admin: 09/10/19 09:18 Dose: 81 mg Betamethasone/Clotrimazole (Lotrisone Cream) 1 appl TP BID PRN PRN Reason: SEBORRHEIC DERMATITIS Stop: 11/05/19 13:17 Bisacodyl (Dulcolax 10 Mg Supp) 10 mg RC DAILY PRN PRN Reason: IF MIRALAX & MOM INEFFECTIVE Stop: 11/05/19 13:17 Carbidopa/Levodopa (Sinemet 25mg-100 Mg) 1 tab PO TID [facility]IN Stop: 11/05/19 13:59 Last Admin: 09/10/19 09:17 Dose: 1 tab Dextrose (Glutose 40%) 18.75 gm PO PRN PRN PRN Reason: BS Below 70 if tolerate po Stop: 11/05/19 13:24 Donepezil HCl (Aricept) 5 mg PO BID [facility] Stop: 11/05/19 16:59 Last Admin: 09/10/19 09:18 Dose: 5 mg Finasteride (Proscar) 5 mg PO DAILY [facility]; Protocol Stop: 11/06/19 08:59 Last Admin: 09/10/19 09:17 Dose: 5 mg Fluticasone Propionate (Flonase) 2 spr NS DAILY [facility] Stop: 11/06/19 08:59 Last Admin: 09/10/19 09:17 Dose: 2 spr Glucagon (Glucagen) 1 mg IM PRN PRN PRN Reason: BS Below 70 if not tolerate po Stop: 11/05/19 13:24 Insulin Human Lispro (Humalog Insulin Sliding Scale) 0 units SUBQ QDAC [facility]; Protocol Stop: 11/06/19 07:29 Last Admin: 09/10/19 06:30 Dose: Not Given Lactobacillus Rhamnosus (Culturelle 15b) 1 each PO DAILY [facility] Stop: 11/06/19 08:59 Last Admin: 09/10/19 09:18 Dose: 1 each Lactulose (Cephulac) 20 gm PO DAILY [facility] Stop: 11/07/19 08:59 Last Admin: 09/10/19 09:17 Dose: 20 gm Lidocaine (Lidoderm 5% Patch) 1 patch TD DAILY [facility] Stop: 11/06/19 08:59 Last Admin: 09/10/19 09:17 Dose: 1 patch Lorazepam (Ativan) 0.5 mg PO Q4HR PRN; Protocol PRN Reason: Anxiety Stop: 10/06/19 04:08 Last Admin: 09/07/19 06:00 Dose: 0.5 mg Magnesium Hydroxide (Milk Of Magnesia) 30 ml PO HS PRN PRN Reason: Constipation Megestrol Acetate (Megace) 400 mg PO QDAC [facility]; Protocol Stop: 11/06/19 07:29 Last Admin: 09/10/19 06:30 Dose: 400 mg Miscellaneous (Mirabegron [Myrbetriq]) 25 mg PO HS [facility] Stop: 11/05/19 20:59 Last Admin: 09/06/19 21:11 Dose: Not Given Miscellaneous (Pimavanserin Tartrate [Nuplazid]) 34 mg PO HS [facility] Stop: 11/05/19 20:59 Last Admin: 09/06/19 21:11 Dose: Not Given Miscellaneous (Rasagiline Mesylate [Azilect]) 1 mg PO DAILY [facility] Stop: 11/06/19 08:59 Miscellaneous (Rotigotine [Neupro]) 8 mg TD Q24H [facility] Stop: 11/05/19 13:29 Last Admin: 09/06/19 15:01 Dose: Not Given Multivitamins/Vitamin C (Theragran) 1 tab PO DAILY [facility] Stop: 11/05/19 08:59 Last Admin: 09/10/19 09:17 Dose: 1 tab Pantoprazole Sodium (Protonix) 40 mg PO QDAC [facility] Stop: 11/06/19 07:29 Last Admin: 09/10/19 06:31 Dose: 40 mg Polyethylene Glycol (Miralax) 17 gm PO QAM PRN PRN Reason: Constipation Stop: 11/05/19 13:17 Quetiapine Fumarate (Seroquel) 12.5 mg PO HS [facility]; Protocol Stop: 11/06/19 20:59 Last Admin: 09/09/19 20:58 Dose: 12.5 mg Senna (Senna) 8.6 mg PO BID PRN PRN Reason: Constipation Stop: 11/05/19 16:59 Sodium Phosphate (Fleet Enema) 118 ml RC DAILY PRN PRN Reason: IF DULCOLAX INEFFECTIVE Stop: 11/05/19 13:17 Tamsulosin HCl (Flomax) 0.4 mg PO DAILY [facility] Stop: 11/06/19 08:59 Last Admin: 09/10/19 09:17 Dose: 0.4 mg Zolpidem Tartrate (Ambien) 5 mg PO HS PRN PRN Reason: Insomnia Stop: 11/05/19 04:08 Last Admin: 09/09/19 20:59 Dose: 5 mg General: lethargic, demented, thin, cachectic, other (contracted) HEENT: NC/AT, PERRLA Neck: Supple Lungs: CTAB Cardiovascular: RRR, Normal S1, Normal S2, with murmur Abdomen: soft, thin, positive bowel sound Extremities: excoriation, deformity, erythema Neurological: no change, spastic Internal Medicine Assmt/Plan - Assessment Assessment: ASSESSMENT AND PLAN: Diabetes, hypertension, hypokalemia, renal insufficiency, anemia, Parkinson's dementia, paroxysmal atrial fibrillation, benign prostatic hyperplasia, dermatitis, gait imbalance. - Plan Plan: PLAN: Continue the patient on ADA diet and insulin sliding scale. We will review the patient's medication. Continue patient's antihypertensive medication. We will replace patient's potassium. We will continue to follow closely. meds titrated awaiting meds--family to provide per staff Nutritional Asmnt/Malnutr-PDOC - Dietary Evaluation Malnutrition Findings (Please click <Entered> for more info): Nutritional Asmnt/Malnutrition Start: 09/06/19 14: 29 Text: Status: Complete Freq: Protocol: Document 09/06/19 14:29 UVALDO (Rec: 09/06/19 14:33 [email or web address] [id number]) Nutritional Asmnt/Malnutrition Patient General Information Nutritional Screening High Risk Diagnosis Psychosis Pertinent Medical Hx/Surgical Hx No H& P available yet. Subjective Information Pt downgraded to moderate risk as he is eating and Ensure TID has been added to diet to increase nutritional intake to support skin integrity. Pt is a 79-year-old male admitted on 09/06 d/t psychosis. Visited pt at lunch time and spoke with family at side. Pt was eating lunch, was able to feed himself, pt seemed to need his food chopped as he was unable to use both hands at same time and is only able to use a spoon. Recorded pt food preferences and adding Ensure TID to increase kcal and pro intake as pt does loose food in his lap and enjoys the taste of the chocolate Ensure drinks. Pt stated its easy for him to drink with a straw than to eat everything. Pt was doing well eating though, will thicken hot cereals in the morning to help pt get the food to his mouth per request. Will monitor pt Zeyad Score and PO intake. Spoke with pt Nurse Tenisha pertaining to recommendation: Diet Rx Mechanical Soft, Chopped Anthropometrics HT: 56 WT: 126 LB (57.27 kg) BMI: 20.40 (Normal) GI/ Skin Integrity GI: WNL, Soft, Flat BM: 2/7 x1 I/O: 60/Not Noted Skin: WNL, Intact Zeyad: 12 Diet Order: Regular Estimated Energy Needs: ( Geriatric, CBW) 1640-6434 kcals (25-30 kcals/ kg) 60-70g Pro (1.0-1.2 g/kg) 8779-6307 ml (25-30 ml/kg) Pertinent Medications Maalox (PRN), Albuterol (PRN), Dulcolax, Glutose 40% (PRN), Flonase, Glucagen (PRN), INS- SS, Cephulac, MOM (PRN), Megace, Theragran, Protonix, Miralax (PRN), Klor-Con, Senna , Flomax Pertinent Labs Pertinent Labs No nutrition diagnosis at this time. Glucose WNL. Nutritional Hx/Data Height 1.68 m Height (Calculated Centimeters) 167.6 Current Weight (lbs) 57.153 kg Weight (Calculated Kilograms) 57.2 Weight (Calculated Grams) 68109.6 [place] Body Weight 142 LB (64.55 kg) % [place] Body Weight 89 Body Mass Index (BMI) 20.3 Weight Status Approriate GI Symptoms GI Symptoms None Last BM 2/7 x1 Skin Integrity/Comment: Zeyad: 12 Pt downgraded to moderate risk as he is eating and Ensure TID has been added to diet to increase nutritional intake to support skin integrity. Will monitor pt Zeyad Score and PO intake. Estimated Nutritional Goals BEE in Kcals: Using Current wt Calories/Kcals/Kg 25-30 Kcals Calculated 1698-2368 Protein: Using Current wt Protein g/k.0-1.2 Protein Calculated 60-70 Fluid: ml 5144-3994 ml (25-30 ml/kg) Nutritional Problem No current Nutrition Prob Problem No nutrition diagnosis at this time. Etiology N/A Signs/Symptoms: N/A Malnutrition Related to Morbid Obesity Malnutrition related to morbid obesity No Intervention/Recommendation Comments 1.Recommend Diet Rx: Mechanical Soft, Chopped d/t pt physical eating abilities. 2.Add Ensure TID per pt request (completed). Expected Outcomes/Goals Expected Outcomes/Goals 1.PO intake to meet 75% of estimated nutritional needs. 2.Monitor PO intake, wt, nutrition related labs, and skin integrity. 3.F/U as moderate risk in 7-10 days, 09/09-09/11.
--- NOTE | 2019-09-10 20:06 | Progress Notes ---
DATE: 09/09/2019 PSYCHOLOGY PROGRESS NOTE SUBJECTIVE: The patient is seen and the case has been discussed with staff. The patient presents as easily irritated. Staff reports the patient has had multiple screaming and yelling episodes and is difficult to redirect. The patient also has been withdrawn and isolative. The patient is also verbalizing accusations towards the staff. OBJECTIVE: Mood is irritable. Affect is constricted. The patient is loud with sporadic yelling episodes. The patient is displaying a level of suspiciousness as well as accusations; therefore, paranoid ideation is most likely present. The patient denied any auditory or visual hallucinations. The patient's behavior has been difficult to redirect and he is a total care patient. ASSESSMENT: The patient's psychosis persists. PLAN: We will continue to provide supportive psychotherapy to include de-escalation as well as remotivation and positive reinforcement for the patient to become compliant and stay compliant with all aspects of his care and treatment. We will provide reality orientation, differentiation and integration. We will provide coping strategies for phase of life issues as well as for chronic severe mental illness. We will follow up in 2-3 days to continue the present treatment if the patient remains admitted on the unit and is able to demonstrate the capacity to benefit from psychology services. JOB# [id number] VENECIA
--- NOTE | 2019-09-11 03:10 | Progress Notes ---
DATE: 09/10/2019 SUBJECTIVE: Staff was spoken to. The patient is interviewed. Mood is noted to be still irritable. The patient has paranoia, but denies any command hallucinations. The patient is cognitively impaired. Impulse control is noted to be poor. he tends to get agitated easily. He needs to be redirected.He is s total care pt.His sleep is poor and appetite is fair. He is provided with supportive therapy. He will be continued on Seroquel. JOB# [id number] [facility]
[2019-09-11] MEDS: INSULIN LISPRO SLIDING SCALE 100 UNITS/ML UNIT SUBQ SCH (06:53)
[2019-09-11] MEDS: Pantoprazole 40 mg EC Tab PO SCH (06:54)
[2019-09-11] MEDS: Fluticasone Propionate Nasal 1 SPR SPR NS SCH (09:25)
[2019-09-11] MEDS: Lidocaine 5% Patch TD SCH (09:25)
[2019-09-11] MEDS: Multivitamin Tab PO SCH (09:26)
[2019-09-11] MEDS: Lactobacillus Rhamnosus GG 15 Billion CFU CAP.SPRINK PO SCH (09:26)
[2019-09-11] MEDS: Lactulose 10 Gm/15 mL 30mL UDC PO SCH (09:26)
--- NOTE | 2019-09-11 13:23 | Internal Medicine Prog Note ---
Internal Medicine Subjective - Subjective Patient seen and examined:: with staff, chart reviewed Patient is:: awake, non-verbal, non-interactive, malachi chair Per staff patient has:: no adverse event, no episodes of fall, poor appetite, noncompliant Internal Medicine Objective - Results Recent Labs: Laboratory Last Values POC Glucose 91 MG/DL (70 - 105) 09/10/19 06:06 - Physical Exam Vitals and I&O: Vital Signs Temp 97.4 F 09/11/19 06:08 Pulse 87 09/11/19 06:08 Resp 18 09/11/19 08:00 BP 133/74 09/11/19 06:08 Pulse Ox 98 09/11/19 06:08 Intake & Output 09/10/19 09/11/19 09/11/19 18:59 06:59 18:59 Intake Total 400 540 Balance 400 540 Intake: Oral 400 540 Other: # Voids 3 # Bowel Movements 0 Stool Characteristics Formed Formed Active Medications: Current Medications Acetaminophen (Tylenol) 650 mg PO Q4H PRN PRN Reason: Pain (Mild 1-3) Stop: 11/05/19 04:08 Acetaminophen/Hydrocodone Bitart ([place] 5mg/325mg) 1 tab PO Q8H PRN PRN Reason: Pain (Severe 7-10) Stop: 11/05/19 13:29 Al Hydrox/Mg Hydrox/Simethicone (Maalox) 30 ml PO Q4HR PRN PRN Reason: GI DISTRESS Stop: 11/05/19 04:08 Albuterol Sulfate (Albuterol 2.5mg/3ml Neb Ud) 2.5 mg HHN Q4HR PRN PRN Reason: Shortness of Breath Stop: 11/05/19 15:59 Artificial Tears (Artificial Tears Ophth Soln) 1 drop EACH EYE TID PRN PRN Reason: dry eyes Stop: 11/05/19 13:17 Aspirin (Ecotrin) 81 mg PO DAILY [facility] Stop: 11/06/19 08:59 Last Admin: 09/11/19 09:26 Dose: 81 mg Betamethasone/Clotrimazole (Lotrisone Cream) 1 appl TP BID PRN PRN Reason: SEBORRHEIC DERMATITIS Stop: 11/05/19 13:17 Bisacodyl (Dulcolax 10 Mg Supp) 10 mg RC DAILY PRN PRN Reason: IF MIRALAX & MOM INEFFECTIVE Stop: 11/05/19 13:17 Carbidopa/Levodopa (Sinemet 25mg-100 Mg) 1 tab PO TID [facility] Stop: 11/05/19 13:59 Last Admin: 09/11/19 09:25 Dose: 1 tab Dextrose (Glutose 40%) 18.75 gm PO PRN PRN PRN Reason: BS Below 70 if tolerate po Stop: 11/05/19 13:24 Donepezil HCl (Aricept) 5 mg PO BID [facility] Stop: 11/05/19 16:59 Last Admin: 09/11/19 09:26 Dose: 5 mg Finasteride (Proscar) 5 mg PO DAILY [facility]; Protocol Stop: 11/06/19 08:59 Last Admin: 09/11/19 09:25 Dose: 5 mg Fluticasone Propionate (Flonase) 2 spr NS DAILY [facility] Stop: 11/06/19 08:59 Last Admin: 09/11/19 09:25 Dose: 2 spr Glucagon (Glucagen) 1 mg IM PRN PRN PRN Reason: BS Below 70 if not tolerate po Stop: 11/05/19 13:24 Insulin Human Lispro (Humalog Insulin Sliding Scale) 0 units SUBQ QDAC [facility]; Protocol Stop: 11/06/19 07:29 Last Admin: 09/11/19 06:53 Dose: Not Given Lactobacillus Rhamnosus (Culturelle 15b) 1 each PO DAILY [facility] Stop: 11/06/19 08:59 Last Admin: 09/11/19 09:26 Dose: 1 each Lactulose (Cephulac) 20 gm PO DAILY [facility] Stop: 11/07/19 08:59 Last Admin: 09/11/19 09:26 Dose: 20 gm Lidocaine (Lidoderm 5% Patch) 1 patch TD DAILY [facility] Stop: 11/06/19 08:59 Last Admin: 09/11/19 09:25 Dose: 1 patch Lorazepam (Ativan) 0.5 mg PO Q4HR PRN; Protocol PRN Reason: Anxiety Stop: 10/06/19 04:08 Last Admin: 09/07/19 06:00 Dose: 0.5 mg Magnesium Hydroxide (Milk Of Magnesia) 30 ml PO HS PRN PRN Reason: Constipation Megestrol Acetate (Megace) 400 mg PO QDAC [facility]; Protocol Stop: 11/06/19 07:29 Last Admin: 09/11/19 06:53 Dose: 400 mg Miscellaneous (Mirabegron [Myrbetriq]) 25 mg PO HS [facility] Stop: 11/05/19 20:59 Last Admin: 09/06/19 21:11 Dose: Not Given Miscellaneous (Pimavanserin Tartrate [Nuplazid]) 34 mg PO HS [facility] Stop: 11/05/19 20:59 Last Admin: 09/06/19 21:11 Dose: Not Given Miscellaneous (Rasagiline Mesylate [Azilect]) 1 mg PO DAILY [facility] Stop: 11/06/19 08:59 Miscellaneous (Rotigotine [Neupro]) 8 mg TD Q24H [facility] Stop: 11/05/19 13:29 Last Admin: 09/06/19 15:01 Dose: Not Given Multivitamins/Vitamin C (Theragran) 1 tab PO DAILY [facility] Stop: 11/05/19 08:59 Last Admin: 09/11/19 09:26 Dose: 1 tab Pantoprazole Sodium (Protonix) 40 mg PO QDAC [facility] Stop: 11/06/19 07:29 Last Admin: 09/11/19 06:54 Dose: 40 mg Polyethylene Glycol (Miralax) 17 gm PO QAM PRN PRN Reason: Constipation Stop: 11/05/19 13:17 Quetiapine Fumarate (Seroquel) 25 mg PO [facility]; Protocol Stop: 11/09/19 20:59 Senna (Senna) 8.6 mg PO BID PRN PRN Reason: Constipation Stop: 11/05/19 16:59 Sodium Phosphate (Fleet Enema) 118 ml RC DAILY PRN PRN Reason: IF DULCOLAX INEFFECTIVE Stop: 11/05/19 13:17 Tamsulosin HCl (Flomax) 0.4 mg PO DAILY [facility] Stop: 11/06/19 08:59 Last Admin: 09/11/19 09:26 Dose: 0.4 mg Zolpidem Tartrate (Ambien) 5 mg PO HS PRN PRN Reason: Insomnia Stop: 11/05/19 04:08 Last Admin: 09/10/19 21:12 Dose: 5 mg General: lethargic, demented, thin, cachectic, other (contracted) HEENT: NC/AT, PERRLA Neck: Supple Lungs: CTAB Cardiovascular: RRR, Normal S1, Normal S2, with murmur Abdomen: soft, thin, positive bowel sound Extremities: excoriation, deformity, erythema Neurological: no change, spastic Internal Medicine Assmt/Plan - Assessment Assessment: ASSESSMENT AND PLAN: Diabetes, hypertension, hypokalemia, renal insufficiency, anemia, Parkinson's dementia, paroxysmal atrial fibrillation, benign prostatic hyperplasia, dermatitis, gait imbalance. - Plan Plan: PLAN: Continue the patient on ADA diet and insulin sliding scale. We will review the patient's medication. Continue patient's antihypertensive medication. We will replace patient's potassium. We will continue to follow closely. meds titrated awaiting meds--family to provide per staff Nutritional Asmnt/Malnutr-PDOC - Dietary Evaluation Malnutrition Findings (Please click <Entered> for more info): Nutritional Asmnt/Malnutrition Start: 09/06/19 14: 29 Text: Status: Complete Freq: Protocol: Document 09/06/19 14:29 UVALDO (Rec: 09/06/19 14:33 UVALDO [id number]) Nutritional Asmnt/Malnutrition Patient General Information Nutritional Screening High Risk Diagnosis Psychosis Pertinent Medical Hx/Surgical Hx No H& P available yet. Subjective Information Pt downgraded to moderate risk as he is eating and Ensure TID has been added to diet to increase nutritional intake to support skin integrity. Pt is a 79-year-old male admitted on 09/06 d/t psychosis. Visited pt at lunch time and spoke with family at side. Pt was eating lunch, was able to feed himself, pt seemed to need his food chopped as he was unable to use both hands at same time and is only able to use a spoon. Recorded pt food preferences and adding Ensure TID to increase kcal and pro intake as pt does loose food in his lap and enjoys the taste of the chocolate Ensure drinks. Pt stated its easy for him to drink with a straw than to eat everything. Pt was doing well eating though, will thicken hot cereals in the morning to help pt get the food to his mouth per request. Will monitor pt Zeyad Score and PO intake. Spoke with pt Nurse Tenisha pertaining to recommendation: Diet Rx Mechanical Soft, Chopped Anthropometrics HT: 56 WT: 126 LB (57.27 kg) BMI: 20.40 (Normal) GI/ Skin Integrity GI: WNL, Soft, Flat BM: 2/7 x1 I/O: 60/Not Noted Skin: WNL, Intact Zeyad: 12 Diet Order: Regular Estimated Energy Needs: ( Geriatric, CBW) 5015-5136 kcals (25-30 kcals/ kg) 60-70g Pro (1.0-1.2 g/kg) 5500-1302 ml (25-30 ml/kg) Pertinent Medications Maalox (PRN), Albuterol (PRN), Dulcolax, Glutose 40% (PRN), Flonase, Glucagen (PRN), INS- SS, Cephulac, MOM (PRN), Megace, Theragran, Protonix, Miralax (PRN), Klor-Con, Senna , Flomax Pertinent Labs Pertinent Labs No nutrition diagnosis at this time. Glucose WNL. Nutritional Hx/Data Height 1.68 m Height (Calculated Centimeters) 167.6 Current Weight (lbs) 57.153 kg Weight (Calculated Kilograms) 57.2 Weight (Calculated Grams) 54858.6 [place] Body Weight 142 LB (64.55 kg) % [place] Body Weight 89 Body Mass Index (BMI) 20.3 Weight Status Approriate GI Symptoms GI Symptoms None Last BM 09/06 x1 Skin Integrity/Comment: Zeyad: 12 Pt downgraded to moderate risk as he is eating and Ensure TID has been added to diet to increase nutritional intake to support skin integrity. Will monitor pt Zeyad Score and PO intake. Estimated Nutritional Goals BEE in Kcals: Using Current wt Calories/Kcals/Kg 25-30 Kcals Calculated 8585-4418 Protein: Using Current wt Protein g/k.0-1.2 Protein Calculated 60-70 Fluid: ml 2577-2754 ml (25-30 ml/kg) Nutritional Problem No current Nutrition Prob Problem No nutrition diagnosis at this time. Etiology N/A Signs/Symptoms: N/A Malnutrition Related to Morbid Obesity Malnutrition related to morbid obesity No Intervention/Recommendation Comments 1.Recommend Diet Rx: Mechanical Soft, Chopped d/t pt physical eating abilities. 2.Add Ensure TID per pt request (completed). Expected Outcomes/Goals Expected Outcomes/Goals 1.PO intake to meet 75% of estimated nutritional needs. 2.Monitor PO intake, wt, nutrition related labs, and skin integrity. 3.F/U as moderate risk in 7-10 days, 09/09-09/11.
--- NOTE | 2019-09-11 14:07 | Progress Notes ---
DATE: 09/11/2019 PSYCHIATRIC PROGRESS NOTE SUBJECTIVE: Staff was spoken to. The patient is interviewed. Mood is noted to be anxious. Affect is constricted. The patient is getting easily irritable. The patient has no insight into his illness. The patient is a total care patient and needs to be redirected. The patient gets easily agitated when redirected. The patient has no insight. The patient's family has been able to provide the ____ for his paranoid delusions with regards to the Parkinson's disease and the patient has been placed on Seroquel and has been able to tolerate the medication so far. No major side effects to the medications are noted. ASSESSMENT: The patient is still paranoid and he getting easily agitated. PLAN: To continue the patient with the supportive therapy and followup. JOB# [id number]
[2019-09-12] MEDS: INSULIN LISPRO SLIDING SCALE 100 UNITS/ML UNIT SUBQ SCH (06:49)
[2019-09-12] MEDS: Pantoprazole 40 mg EC Tab PO SCH (06:50)
[2019-09-12] MEDS: Multivitamin Tab PO SCH (09:03)
[2019-09-12] MEDS: Lactobacillus Rhamnosus GG 15 Billion CFU CAP.SPRINK PO SCH (09:04)
[2019-09-12] MEDS: Lactulose 10 Gm/15 mL 30mL UDC PO SCH (09:04)
[2019-09-12] MEDS: Fluticasone Propionate Nasal 1 SPR SPR NS SCH (09:05)
[2019-09-12] MEDS: Lidocaine 5% Patch TD SCH (09:05)
--- NOTE | 2019-09-12 11:07 | Progress Notes ---
DATE: 09/11/2019 PSYCHOLOGY PROGRESS NOTE SUBJECTIVE: The patient is seen and is interviewed. Case is discussed with staff. The patient presents as somewhat anxious and a little restless. Affect is constricted. The patient was getting irritated with the clinical questions at times. The patient has some paranoid delusions; however, the patient seems to be compliant now with his medication according to the staff. OBJECTIVE: Mood is anxious. Affect is constricted. Thought process shows to be concrete and somewhat confused. The patient continues to have a level of suspiciousness with regards to his Parkinson's disease and the medication needed for that disorder. The patient denied any other visual or auditory hallucinations. The patient is intermittently compliant with his medication. ASSESSMENT: The patient's paranoia persists and the patient continues to get easily agitated. PLAN: We will continue to provide supportive psychotherapy to include reality orientation, differentiation and integration. We provided remotivation for the patient to become compliant and stay compliant with all aspects of his care and treatment. We provided coping strategies for phase of life issues as well as for adjustment to his current medical condition and any sudden changes in that condition. We provided encouragement for the patient to verbalize his concerns appropriately to staff versus acting out. We will follow up in 2-3 days to continue the present treatment if the patient remains admitted on the unit. We will also reevaluate the patient to determine the patient's capacity to benefit from psychology services and to continue this type of treatment. [facility]# [id number] [facility]
--- NOTE | 2019-09-12 15:30 | Internal Medicine Prog Note ---
Internal Medicine Subjective - Subjective Patient seen and examined:: with staff, chart reviewed Patient is:: awake, non-verbal, non-interactive, malachi chair Per staff patient has:: no adverse event, no episodes of fall, poor appetite, noncompliant Internal Medicine Objective - Results Recent Labs: Laboratory Last Values POC Glucose 88 MG/DL (70 - 105) 09/12/19 06:16 - Physical Exam Vitals and I&O: Vital Signs Temp 98.5 F 09/12/19 06:45 Pulse 87 09/12/19 06:45 Resp 18 09/12/19 06:45 BP 123/66 09/12/19 06:45 Pulse Ox 96 09/12/19 06:45 Intake & Output 09/11/19 09/12/19 09/12/19 18:59 06:59 18:59 Intake Total 1200 120 Balance 1200 120 Intake: Oral 1200 120 Other: # Voids 3 # Bowel Movements 1 Stool Characteristics Formed Active Medications: Current Medications Acetaminophen (Tylenol) 650 mg PO Q4H PRN PRN Reason: Pain (Moderate 4-7) Stop: 11/05/19 04:08 Acetaminophen/Hydrocodone Bitart ([place] 5mg/325mg) 1 tab PO Q8H PRN PRN Reason: Pain (Severe 7-10) Stop: 11/05/19 13:29 Al Hydrox/Mg Hydrox/Simethicone (Maalox) 30 ml PO Q4HR PRN PRN Reason: GI DISTRESS Stop: 11/05/19 04:08 Albuterol Sulfate (Albuterol 2.5mg/3ml Neb Ud) 2.5 mg HHN Q4HR PRN PRN Reason: Shortness of Breath Stop: 11/05/19 15:59 Artificial Tears (Artificial Tears Ophth Soln) 1 drop EACH EYE TID PRN PRN Reason: dry eyes Stop: 11/05/19 13:17 Aspirin (Ecotrin) 81 mg PO DAILY [facility] Stop: 11/06/19 08:59 Last Admin: 09/12/19 09:04 Dose: 81 mg Betamethasone/Clotrimazole (Lotrisone Cream) 1 appl TP BID PRN PRN Reason: SEBORRHEIC DERMATITIS Stop: 11/05/19 13:17 Bisacodyl (Dulcolax 10 Mg Supp) 10 mg RC DAILY PRN PRN Reason: IF MIRALAX & MOM INEFFECTIVE Stop: 11/05/19 13:17 Carbidopa/Levodopa (Sinemet 25mg-100 Mg) 1 tab PO TID [facility] Stop: 11/05/19 13:59 Last Admin: 09/12/19 09:03 Dose: 1 tab Dextrose (Glutose 40%) 18.75 gm PO PRN PRN PRN Reason: BS Below 70 if tolerate po Stop: 11/05/19 13:24 Donepezil HCl (Aricept) 5 mg PO BID [facility] Stop: 11/05/19 16:59 Last Admin: 09/12/19 09:04 Dose: 5 mg Finasteride (Proscar) 5 mg PO DAILY [facility]; Protocol Stop: 11/06/19 08:59 Last Admin: 09/12/19 09:03 Dose: 5 mg Fluticasone Propionate (Flonase) 2 spr NS DAILY [facility] Stop: 11/06/19 08:59 Last Admin: 09/12/19 09:05 Dose: 2 spr Glucagon (Glucagen) 1 mg IM PRN PRN PRN Reason: BS Below 70 if not tolerate po Stop: 11/05/19 13:24 Insulin Human Lispro (Humalog Insulin Sliding Scale) 0 units SUBQ QDAC [facility]; Protocol Stop: 11/06/19 07:29 Last Admin: 09/12/19 06:49 Dose: Not Given Lactobacillus Rhamnosus (Culturelle 15b) 1 each PO DAILY [facility] Stop: 11/06/19 08:59 Last Admin: 09/12/19 09:04 Dose: 1 each Lidocaine (Lidoderm 5% Patch) 1 patch TD DAILY [facility] Stop: 11/06/19 08:59 Last Admin: 09/12/19 09:05 Dose: 1 patch Lorazepam (Ativan) 0.5 mg PO Q4HR PRN; Protocol PRN Reason: Anxiety Stop: 10/06/19 04:08 Last Admin: 09/07/19 06:00 Dose: 0.5 mg Magnesium Hydroxide (Milk Of Magnesia) 30 ml PO HS PRN PRN Reason: Constipation Megestrol Acetate (Megace) 400 mg PO QDAC [facility]; Protocol Stop: 11/06/19 07:29 Last Admin: 09/12/19 06:50 Dose: 400 mg Miscellaneous (Mirabegron [Myrbetriq]) 25 mg PO HS [facility] Stop: 11/05/19 20:59 Last Admin: 09/06/19 21:11 Dose: Not Given Miscellaneous (Pimavanserin Tartrate [Nuplazid]) 34 mg PO HS [facility] Stop: 11/05/19 20:59 Last Admin: 09/06/19 21:11 Dose: Not Given Miscellaneous (Rasagiline Mesylate [Azilect]) 1 mg PO DAILY [facility] Stop: 11/06/19 08:59 Miscellaneous (Rotigotine [Neupro]) 8 mg TD Q24H [facility] Stop: 11/05/19 13:29 Last Admin: 09/06/19 15:01 Dose: Not Given Multivitamins/Vitamin C (Theragran) 1 tab PO DAILY [facility] Stop: 11/05/19 08:59 Last Admin: 09/12/19 09:03 Dose: 1 tab Oxybutynin Chloride (Ditropan) 5 mg PO DAILY [facility] Stop: 11/12/19 08:59 Pantoprazole Sodium (Protonix) 40 mg PO QDAC [facility] Stop: 11/06/19 07:29 Last Admin: 09/12/19 06:50 Dose: 40 mg Polyethylene Glycol (Miralax) 17 gm PO QAM [facility] Stop: 11/12/19 08:59 Quetiapine Fumarate (Seroquel) 25 mg PO [facility]; Protocol Stop: 11/09/19 20:59 Last Admin: 09/11/19 20:17 Dose: 25 mg Senna (Senna) 8.6 mg PO BID PRN PRN Reason: Constipation Stop: 11/05/19 16:59 Sodium Phosphate (Fleet Enema) 118 ml RC DAILY PRN PRN Reason: IF DULCOLAX INEFFECTIVE Stop: 11/05/19 13:17 Tamsulosin HCl (Flomax) 0.4 mg PO DAILY [facility] Stop: 11/06/19 08:59 Last Admin: 09/12/19 09:04 Dose: 0.4 mg Zolpidem Tartrate (Ambien) 5 mg PO PRN PRN Reason: Insomnia Stop: 11/05/19 04:08 Last Admin: 09/10/19 21:12 Dose: 5 mg General: lethargic, demented, thin, cachectic, other (contracted) HEENT: NC/AT, PERRLA Neck: Supple Lungs: CTAB Cardiovascular: RRR, Normal S1, Normal S2, with murmur Abdomen: soft, thin, positive bowel sound Extremities: excoriation, deformity, erythema Neurological: no change, spastic Internal Medicine Assmt/Plan - Assessment Assessment: ASSESSMENT AND PLAN: Diabetes, hypertension, hypokalemia, renal insufficiency, anemia, Parkinson's dementia, paroxysmal atrial fibrillation, benign prostatic hyperplasia, dermatitis, gait imbalance. - Plan Plan: PLAN: Continue the patient on ADA diet and insulin sliding scale. We will review the patient's medication. Continue patient's antihypertensive medication. We will replace patient's potassium. We will continue to follow closely. meds titrated awaiting meds--family to provide per staff Nutritional Asmnt/Malnutr-PDOC - Dietary Evaluation Malnutrition Findings (Please click <Entered> for more info): Nutritional Asmnt/Malnutrition Start: 09/06/19 14: 29 Text: Status: Complete Freq: Protocol: Document 09/06/19 14:29 UVALDO (Rec: 09/06/19 14:33 [email or web address] [id number]) Nutritional Asmnt/Malnutrition Patient General Information Nutritional Screening High Risk Diagnosis Psychosis Pertinent Medical Hx/Surgical Hx No H& P available yet. Subjective Information Pt downgraded to moderate risk as he is eating and Ensure TID has been added to diet to increase nutritional intake to support skin integrity. Pt is a 79-year-old male admitted on 09/06 d/t psychosis. Visited pt at lunch time and spoke with family at side. Pt was eating lunch, was able to feed himself, pt seemed to need his food chopped as he was unable to use both hands at same time and is only able to use a spoon. Recorded pt food preferences and adding Ensure TID to increase kcal and pro intake as pt does loose food in his lap and enjoys the taste of the chocolate Ensure drinks. Pt stated its easy for him to drink with a straw than to eat everything. Pt was doing well eating though, will thicken hot cereals in the morning to help pt get the food to his mouth per request. Will monitor pt Zeyad Score and PO intake. Spoke with pt Nurse Tenisha pertaining to recommendation: Diet Rx Mechanical Soft, Chopped Anthropometrics HT: 56 WT: 126 LB (57.27 kg) BMI: 20.40 (Normal) GI/ Skin Integrity GI: WNL, Soft, Flat BM: 2/7 x1 I/O: 60/Not Noted Skin: WNL, Intact Zeyad: 12 Diet Order: Regular Estimated Energy Needs: ( Geriatric, CBW) 5387-1410 kcals (25-30 kcals/ kg) 60-70g Pro (1.0-1.2 g/kg) 0559-4857 ml (25-30 ml/kg) Pertinent Medications Maalox (PRN), Albuterol (PRN), Dulcolax, Glutose 40% (PRN), Flonase, Glucagen (PRN), INS- SS, Cephulac, MOM (PRN), Megace, Theragran, Protonix, Miralax (PRN), Klor-Con, Senna , Flomax Pertinent Labs Pertinent Labs No nutrition diagnosis at this time. Glucose WNL. Nutritional Hx/Data Height 1.68 m Height (Calculated Centimeters) 167.6 Current Weight (lbs) 57.153 kg Weight (Calculated Kilograms) 57.2 Weight (Calculated Grams) 63316.6 [place] Body Weight 142 LB (64.55 kg) % [place] Body Weight 89 Body Mass Index (BMI) 20.3 Weight Status Approriate GI Symptoms GI Symptoms None Last BM 09/06 x1 Skin Integrity/Comment: Zeyad: 12 Pt downgraded to moderate risk as he is eating and Ensure TID has been added to diet to increase nutritional intake to support skin integrity. Will monitor pt Zeyad Score and PO intake. Estimated Nutritional Goals BEE in Kcals: Using Current wt Calories/Kcals/Kg 25-30 Kcals Calculated 1056-8229 Protein: Using Current wt Protein g/k.0-1.2 Protein Calculated 60-70 Fluid: ml 7539-6530 ml (25-30 ml/kg) Nutritional Problem No current Nutrition Prob Problem No nutrition diagnosis at this time. Etiology N/A Signs/Symptoms: N/A Malnutrition Related to Morbid Obesity Malnutrition related to morbid obesity No Intervention/Recommendation Comments 1.Recommend Diet Rx: Mechanical Soft, Chopped d/t pt physical eating abilities. 2.Add Ensure TID per pt request (completed). Expected Outcomes/Goals Expected Outcomes/Goals 1.PO intake to meet 75% of estimated nutritional needs. 2.Monitor PO intake, wt, nutrition related labs, and skin integrity. 3.F/U as moderate risk in 7-10 days, 09/09-09/11.
--- NOTE | 2019-09-12 19:03 | Progress Notes ---
DATE: 09/12/2019 SUBJECTIVE: The patient was resting in bed, alert, calm, cooperative. The patient reported that he is doing fine. The patient stated that he wants to go home. The patient reported that he came from [facility]. The patient stated that he has lived there for 2 years. The patient reported that he is eating and sleeping fine. The patient denied any hallucinations or delusions. OBJECTIVE: The patient was calm and cooperative. The patient was somewhat irritable because he wanted to be discharged. The patient was told that he would be discharged tomorrow. The staff reported that the patient has been doing okay. The patient stated that when he came in, his potassium was on the low side. The staff reported that he has been eating and sleeping okay. He has not attended any activities. The patient had requested for magazines what he would go through when he got through with the magazine he would request for a new one. 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 PLAN: We will continue the patient on current medications. Since the patient has shown improvement, we will discharge the patient back to [facility] tomorrow. JOB# [id number]
[2019-09-13] MEDS: INSULIN LISPRO SLIDING SCALE 100 UNITS/ML UNIT SUBQ SCH (06:45)
[2019-09-13] MEDS: Pantoprazole 40 mg EC Tab PO SCH (06:45)
[2019-09-13] MEDS ORDERED: POLYETHYLENE GLYCOL 3350 17 GM PACK PO SCH (09:00)
[2019-09-13] MEDS: Lidocaine 5% Patch TD SCH (09:07)
[2019-09-13] MEDS: Fluticasone Propionate Nasal 1 SPR SPR NS SCH (09:07)
[2019-09-13] MEDS: Lactobacillus Rhamnosus GG 15 Billion CFU CAP.SPRINK PO SCH (09:10)
[2019-09-13] MEDS: Multivitamin Tab PO SCH (09:10)
--- NOTE | 2019-09-13 10:07 | Discharge Summary ---
DATE OF DISCHARGE: 09/13/2019 REASON FOR ADMISSION: The patient was admitted for increased agitation and aggression and depression. HISTORY OF PRESENT ILLNESS: The patient was an 79-year-old male from [facility] in [place]. The patient has history of Parkinson's disease with psychosis and on Nuplazid. After his hospitalization; however, the patient was unable to receive Nuplazid because this is not on formulary. The patient also did not receive Myrbetriq for overactive bladder. However, the patient was maintained on the other psychotropic medications and medications from the facility. The patient did show improvement after his hospitalization. The patient has been compliant with his medications. The patient has been eating and sleeping okay. The day before discharge, the patient reported that he would like to go back to [facility]. The patient reported that he is feeling okay. The patient denied any auditory or visual hallucination or delusion. Since the patient is doing better, therefore the patient was discharged back on 09/13/2019. LABORATORY DATA: Upon admission, the patient has hemoglobin A1c of 5.8. Potassium of 3.2 which was slightly low; carbon dioxide of 30, slightly high; calcium 8.3, slightly low; BUN 22, slightly high. The rest of the CMP was normal. ____ was 3.0 which was slightly low. The rest were normal. Drug screen showed no positive finding. CBC: RBC of 3.72, hemoglobin 11.5, hematocrit 35.6, lymphocytes of 9.7 slightly low, RDW of 16.7 and neutrophils of 80.7 which was slightly elevated. Urinalysis showed trace urine protein and a few bacteria. DISCHARGE DIAGNOSES: Include: AXIS I: 1. Psychotic disorder, not otherwise specified. 2. 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 3. Dementia due to Parkinson's disease. AXIS II: Deferred. AXIS III: Diabetes mellitus, Parkinson's disease, hypertension, hypothyroidism, atrial fibrillation, benign prostate hypertrophy. AXIS IV: Medical and mental illnesses. AXIS V: Current 35, past year unknown. PLAN: We will discharge the patient on his current medications including Tylenol, Sinemet, albuterol nebulizer, Ecotrin, betamethasone, Dulcolax, Aricept 5 mg b.i.d., Proscar, Fleet enema, fluticasone, glucagon, [place], insulin, lactobacillus, lactulose, lidocaine patch, Ativan 0.5 mg q. 4 hours p.r.n., magnesium hydroxide, Megace 400 mg before breakfast, multiple vitamin, Oxybutynin, Protonix, polyethylene glycol, polyvinyl alcohol, Seroquel 25 mg at bedtime, sennosides, Flomax and Ambien 5 mg at bedtime p.r.n. The patient will be followed by this senior technical writer at [facility]. JOB# [id number]
--- NOTE | 2019-09-13 15:45 | Internal Medicine Prog Note ---
Internal Medicine Subjective - Subjective Patient seen and examined:: with staff, chart reviewed Patient is:: awake, non-verbal, non-interactive, malachi chair Per staff patient has:: no adverse event, no episodes of fall, poor appetite, noncompliant Internal Medicine Objective - Results Recent Labs: Laboratory Last Values POC Glucose 80 MG/DL (70 - 105) 09/13/19 06:13 - Physical Exam Vitals and I&O: Vital Signs Temp 97.9 F 09/13/19 14:00 Pulse 83 09/13/19 14:07 Resp 18 09/13/19 14:07 BP 111/65 09/13/19 14:00 Pulse Ox 98 09/13/19 14:07 Intake & Output 09/12/19 09/13/19 09/13/19 18:59 06:59 18:59 Intake Total 900 120 Balance 900 120 Intake: Oral 900 120 Other: # Voids 3 2 # Bowel Movements 0 0 Active Medications: Current Medications Acetaminophen (Tylenol) 650 mg PO Q4H PRN PRN Reason: Pain (Moderate 4-7) Stop: 11/05/19 04:08 Acetaminophen/Hydrocodone Bitart ([place] 5mg/325mg) 1 tab PO Q8H PRN PRN Reason: Pain (Severe 7-10) Stop: 11/05/19 13:29 Al Hydrox/Mg Hydrox/Simethicone (Maalox) 30 ml PO Q4HR PRN PRN Reason: GI DISTRESS Stop: 11/05/19 04:08 Albuterol Sulfate (Albuterol 2.5mg/3ml Neb Ud) 2.5 mg HHN Q4HR PRN PRN Reason: Shortness of Breath Stop: 11/05/19 15:59 Artificial Tears (Artificial Tears Ophth Soln) 1 drop EACH EYE TID PRN PRN Reason: dry eyes Stop: 11/05/19 13:17 Aspirin (Ecotrin) 81 mg PO DAILY [facility] Stop: 11/06/19 08:59 Last Admin: 09/13/19 09:10 Dose: 81 mg Betamethasone/Clotrimazole (Lotrisone Cream) 1 appl TP BID PRN PRN Reason: SEBORRHEIC DERMATITIS Stop: 11/05/19 13:17 Bisacodyl (Dulcolax 10 Mg Supp) 10 mg RC DAILY PRN PRN Reason: IF MIRALAX & MOM INEFFECTIVE Stop: 11/05/19 13:17 Carbidopa/Levodopa (Sinemet 25mg-100 Mg) 1 tab PO TID [facility] Stop: 11/05/19 13:59 Last Admin: 09/13/19 09:10 Dose: 1 tab Dextrose (Glutose 40%) 18.75 gm PO PRN PRN PRN Reason: BS Below 70 if tolerate po Stop: 11/05/19 13:24 Donepezil HCl (Aricept) 5 mg PO BID [facility] Stop: 11/05/19 16:59 Last Admin: 09/13/19 09:10 Dose: 5 mg Finasteride (Proscar) 5 mg PO DAILY [facility]; Protocol Stop: 11/06/19 08:59 Last Admin: 09/13/19 09:10 Dose: 5 mg Fluticasone Propionate (Flonase) 2 spr NS DAILY [facility] Stop: 11/06/19 08:59 Last Admin: 09/13/19 09:07 Dose: 2 spr Glucagon (Glucagen) 1 mg IM PRN PRN PRN Reason: BS Below 70 if not tolerate po Stop: 11/05/19 13:24 Insulin Human Lispro (Humalog Insulin Sliding Scale) 0 units SUBQ QDAC [facility]; Protocol Stop: 11/06/19 07:29 Last Admin: 09/13/19 06:45 Dose: Not Given Lactobacillus Rhamnosus (Culturelle 15b) 1 each PO DAILY [facility] Stop: 11/06/19 08:59 Last Admin: 09/13/19 09:10 Dose: 1 each Lidocaine (Lidoderm 5% Patch) 1 patch TD DAILY [facility] Stop: 11/06/19 08:59 Last Admin: 09/13/19 09:07 Dose: 1 patch Lorazepam (Ativan) 0.5 mg PO Q4HR PRN; Protocol PRN Reason: Anxiety Stop: 10/06/19 04:08 Last Admin: 09/07/19 06:00 Dose: 0.5 mg Magnesium Hydroxide (Milk Of Magnesia) 30 ml PO HS PRN PRN Reason: Constipation Megestrol Acetate (Megace) 400 mg PO QDAC [facility]; Protocol Stop: 11/06/19 07:29 Last Admin: 09/13/19 06:45 Dose: 400 mg Miscellaneous (Mirabegron [Myrbetriq]) 25 mg PO HS [facility] Stop: 11/05/19 20:59 Last Admin: 09/06/19 21:11 Dose: Not Given Miscellaneous (Pimavanserin Tartrate [Nuplazid]) 34 mg PO HS [facility] Stop: 11/05/19 20:59 Last Admin: 09/06/19 21:11 Dose: Not Given Miscellaneous (Rasagiline Mesylate [Azilect]) 1 mg PO DAILY [facility] Stop: 11/06/19 08:59 Miscellaneous (Rotigotine [Neupro]) 8 mg TD Q24H [facility] Stop: 11/05/19 13:29 Last Admin: 09/06/19 15:01 Dose: Not Given Multivitamins/Vitamin C (Theragran) 1 tab PO DAILY [facility] Stop: 11/05/19 08:59 Last Admin: 09/13/19 09:10 Dose: 1 tab Oxybutynin Chloride (Ditropan) 5 mg PO DAILY [facility] Stop: 11/12/19 08:59 Last Admin: 09/13/19 09:10 Dose: 5 mg Pantoprazole Sodium (Protonix) 40 mg PO QDAC [facility] Stop: 11/06/19 07:29 Last Admin: 09/13/19 06:45 Dose: 40 mg Polyethylene Glycol (Miralax) 17 gm PO QAM [facility] Stop: 11/12/19 08:59 Last Admin: 09/13/19 09:07 Dose: 17 gm Quetiapine Fumarate (Seroquel) 25 mg PO [facility]; Protocol Stop: 11/09/19 20:59 Last Admin: 09/12/19 20:31 Dose: 25 mg Senna (Senna) 8.6 mg PO BID PRN PRN Reason: Constipation Stop: 11/05/19 16:59 Sodium Phosphate (Fleet Enema) 118 ml RC DAILY PRN PRN Reason: IF DULCOLAX INEFFECTIVE Stop: 11/05/19 13:17 Tamsulosin HCl (Flomax) 0.4 mg PO DAILY [facility] Stop: 11/06/19 08:59 Last Admin: 09/13/19 09:10 Dose: 0.4 mg Zolpidem Tartrate (Ambien) 5 mg PO HS PRN PRN Reason: Insomnia Stop: 11/05/19 04:08 Last Admin: 09/10/19 21:12 Dose: 5 mg General: lethargic, demented, thin, cachectic, other (contracted) HEENT: NC/AT, PERRLA Neck: Supple Lungs: CTAB Cardiovascular: RRR, Normal S1, Normal S2, with murmur Abdomen: soft, thin, positive bowel sound Extremities: excoriation, deformity, erythema Neurological: no change, spastic Internal Medicine Assmt/Plan - Assessment Assessment: ASSESSMENT AND PLAN: Diabetes, hypertension, hypokalemia, renal insufficiency, anemia, Parkinson's dementia, paroxysmal atrial fibrillation, benign prostatic hyperplasia, dermatitis, gait imbalance. - Plan Plan: PLAN: Continue the patient on ADA diet and insulin sliding scale. We will review the patient's medication. Continue patient's antihypertensive medication. We will replace patient's potassium. We will continue to follow closely. meds titrated awaiting meds--family to provide per staff Nutritional Asmnt/Malnutr-PDOC - Dietary Evaluation Malnutrition Findings (Please click <Entered> for more info): Nutritional Asmnt/Malnutrition Start: 09/06/19 14: 29 Text: Status: Complete Freq: Protocol: Document 09/06/19 14:29 UVALDO (Rec: 09/06/19 14:33 UVALDO [id number]) Nutritional Asmnt/Malnutrition Patient General Information Nutritional Screening High Risk Diagnosis Psychosis Pertinent Medical Hx/Surgical Hx No H& P available yet. Subjective Information Pt downgraded to moderate risk as he is eating and Ensure TID has been added to diet to increase nutritional intake to support skin integrity. Pt is a 79-year-old male admitted on 09/06 d/t psychosis. Visited pt at lunch time and spoke with family at side. Pt was eating lunch, was able to feed himself, pt seemed to need his food chopped as he was unable to use both hands at same time and is only able to use a spoon. Recorded pt food preferences and adding Ensure TID to increase kcal and pro intake as pt does loose food in his lap and enjoys the taste of the chocolate Ensure drinks. Pt stated its easy for him to drink with a straw than to eat everything. Pt was doing well eating though, will thicken hot cereals in the morning to help pt get the food to his mouth per request. Will monitor pt Zeyad Score and PO intake. Spoke with pt Nurse Tenisha pertaining to recommendation: Diet Rx Mechanical Soft, Chopped Anthropometrics HT: 56 WT: 126 LB (57.27 kg) BMI: 20.40 (Normal) GI/ Skin Integrity GI: WNL, Soft, Flat BM: 2/7 x1 I/O: 60/Not Noted Skin: WNL, Intact Zeyad: 12 Diet Order: Regular Estimated Energy Needs: ( Geriatric, CBW) 1675-3846 kcals (25-30 kcals/ kg) 60-70g Pro (1.0-1.2 g/kg) 4842-8916 ml (25-30 ml/kg) Pertinent Medications Maalox (PRN), Albuterol (PRN), Dulcolax, Glutose 40% (PRN), Flonase, Glucagen (PRN), INS- SS, Cephulac, MOM (PRN), Megace, Theragran, Protonix, Miralax (PRN), Klor-Con, Senna , Flomax Pertinent Labs Pertinent Labs No nutrition diagnosis at this time. Glucose WNL. Nutritional Hx/Data Height 1.68 m Height (Calculated Centimeters) 167.6 Current Weight (lbs) 57.153 kg Weight (Calculated Kilograms) 57.2 Weight (Calculated Grams) 98809.6 [place] Body Weight 142 LB (64.55 kg) % [place] Body Weight 89 Body Mass Index (BMI) 20.3 Weight Status Approriate GI Symptoms GI Symptoms None Last BM 2 x1 Skin Integrity/Comment: Zeyad: 12 Pt downgraded to moderate risk as he is eating and Ensure TID has been added to diet to increase nutritional intake to support skin integrity. Will monitor pt Zeyad Score and PO intake. Estimated Nutritional Goals BEE in Kcals: Using Current wt Calories/Kcals/Kg 25-30 Kcals Calculated 1670-9717 Protein: Using Current wt Protein g/k.0-1.2 Protein Calculated 60-70 Fluid: ml 3150-4188 ml (25-30 ml/kg) Nutritional Problem No current Nutrition Prob Problem No nutrition diagnosis at this time. Etiology N/A Signs/Symptoms: N/A Malnutrition Related to Morbid Obesity Malnutrition related to morbid obesity No Intervention/Recommendation Comments 1.Recommend Diet Rx: Mechanical Soft, Chopped d/t pt physical eating abilities. 2.Add Ensure TID per pt request (completed). Expected Outcomes/Goals Expected Outcomes/Goals 1.PO intake to meet 75% of estimated nutritional needs. 2.Monitor PO intake, wt, nutrition related labs, and skin integrity. 3.F/U as moderate risk in 7-10 days, 09/09-09/11.
--- NOTE | 2019-09-13 21:34 | Progress Notes ---
DATE: 09/13/2019 PSYCHOLOGY PROGRESS NOTE SUBJECTIVE: The patient is seen and is interviewed. Case is discussed with staff. The patient presents as less agitated today. The patient has been compliant with his medications according to the staff. The patient stated that he wants to return to [facility] and that he is feeling much better. OBJECTIVE: Mood is stabilizing. Affect is constricted. Thought process shows to be more goal oriented. The patient denied any hallucinations or delusions. The patient denied any suicidal ideation, plan or intention. The patient's behavior has been compliant with the treatment protocol and specifically with his medication. ASSESSMENT: The patient is approaching baseline and has improved. PLAN: No followup is indicated as the patient is discharging today. We provided positive reinforcement and remotivation for the patient to stay compliant with all aspects of his care and treatment. We provided coping strategies for phase of life issues. We provided reality testing and reality integration. We encouraged the patient to verbalize his concerns versus acting out by care refusal and to follow through with staff direction with respect to his treatment at his placement. Thank you, Dr. Price for this consult and the opportunity to participate with you in this patient's care. JOB# [id number] [place]
== END 2019-09-13 16:00 | DRG 57 ==
LOC: GERO 09-06 03:40
PROVIDERS: ADMIT Psychiatry & Neurology Psychiatry; ATTEND Psychiatry & Neurology Psychiatry
DX: G20 Parkinson's disease (principal); F02.80 Dementia in other diseases classified elsewhere, unspecified severity, without behavioral disturbance, psychotic disturbance, mood disturbance, and anxiety; I10 Essential (primary) hypertension; E11.9 Type 2 diabetes mellitus without complications; N40.0 Benign prostatic hyperplasia without lower urinary tract symptoms; I48.0 Paroxysmal atrial fibrillation; E87.6 Hypokalemia; L30.9 Dermatitis, unspecified; Z79.899 Other long term (current) drug therapy; Z79.84 Long term (current) use of oral hypoglycemic drugs
CPT/HCPCS: 82948-90; 83036-90; Z7610